=== PATIENT | female | born 1965 | race Caucasian/White ===

== ENCOUNTER 2022-10-31 08:37 | Outpatient (RCR) | payer OTHER, SELFPAY | END 2022-11-12 11:48 | disposition home or self-care (01) | LOC: PT 08:37 | PROVIDERS: Visit Provider Physician Assistant | DX: S33.5XXD Sprain of ligaments of lumbar spine, subsequent encounter (principal) | CPT/HCPCS: 20561; 97110 ==

== ENCOUNTER 2022-11-15 08:45 | Outpatient (OUT) | payer BC, OTHER, SELFPAY ==
--- NOTE | 2022-11-15 08:55 | MR_ITS ---
The [address] [address] Patient Name: JANA LANGSTON MRN: [id number] date: 1965 Sex: F Assigned Patient Location: MRI Current Patient Location: MRI Accession/Order Number: [id number] Exam Date: 11/15/2022 09:00 Report Date: 11/15/2022 10:13 At the request of: MUNA HONG Procedure: MR lumbar spine wo con EXAMINATION: MR lumbar spine wo con HISTORY: Lumbar Back Pain , chronic; bilateral hand and foot numbness COMPARISON: CT abdomen pelvis 11/03/2020 TECHNIQUE: A variety of imaging planes and parameters were utilized for visualization of suspected pathology. FINDINGS: For the purposes of numbering, sagittal T2 image # 8 extends from the T11 vertebral body superiorly to the S3-S4 level inferiorly. PARASPINAL AREA: Normal with no visible mass. BONES: No fracture, pars defect, or osseous lesion. CORD/CAUDA EQUINA: Normal caliber, contour, and signal intensity. DISC LEVELS: 12-L1: No significant disc/facet abnormality, spinal stenosis, or foraminal stenosis. L1-L2: No significant disc/facet abnormality, spinal stenosis, or foraminal stenosis. L2-L3: No significant disc/facet abnormality, spinal stenosis, or foraminal stenosis. L3-L4: No significant disc/facet abnormality, spinal stenosis, or foraminal stenosis. L4-L5: Early degenerative disc disease is present without focal protrusion or neural impingement. L5-S1: Early degenerative disc disease is present without focal protrusion or neural impingement. IMPRESSION: 1. Mild degenerative changes of the lower lumbar spine. 2. No significant central canal or foraminal stenosis. Electronically authenticated by: TRISTON PERRIN Date: 11/15/2022 10:13
== END 2022-11-15 08:46 ==
LOC: MRI 08:46
PROVIDERS: Visit Provider Nurse Practitioner Family
DX: S33.5XXA Sprain of ligaments of lumbar spine, initial encounter (principal); R20.0 Anesthesia of skin
CPT/HCPCS: 72148

== ENCOUNTER 2024-01-26 10:38 | Outpatient (OUT) | payer BC, SELFPAY ==
--- NOTE | 2024-01-26 10:46 | MM_ITS ---
Patient Name: JANA LANGSTON MR#: [id number] : 1965 Exam Date: 01/26/2024 Ordering Doctor: KAMRYN BECKHAM RADIOLOGY REPORT PROCEDURE: MM TOMOSYNTHESIS SCREENING BI COMPARISON: MG MAMM SCREEN 3D JER CAD, 10/26/2020. MG MAMM SCREEN 3D JER CAD, 05/09/2022. INDICATIONS: Screening Calculator Name NCI Breast Cancer Risk Assessment Tool 5 Year Breast Cancer Risk Not Reported. Lifetime Breast Cancer Risk Not Reported. Personal Breast Cancer No Personal Ovarian Cancer No Treatments None Family Cancers None LOCATION: [facility] BREAST COMPOSITION: The breasts are heterogeneously dense,which may obscure small masses. FINDINGS: DIAGNOSTIC CATEGORY 2--BENIGN FINDING. NO CHANGE FROM COMPARISON. Scattered benign-appearing calcifications are present. Scattered benign-appearing lymph nodes are present. RIGHT BREAST: No significant suspicious finding. LEFT BREAST: No significant suspicious finding. RECOMMENDATIONS: ROUTINE MAMMOGRAM AND CLINICAL EVALUATION IN 12 MONTHS. PLEASE NOTE: A NORMAL MAMMOGRAM DOES NOT EXCLUDE THE POSSIBILITY OF BREAST CANCER. A CLINICALLY SUSPICIOUS PALPABLE LUMP SHOULD BE BIOPSIED. Dictated by: Alexander Munguia MD on 01/26/2024 at 16:08 Approved by: Alexander Munguia MD on 01/26/2024 at 16:09
== END 2024-01-26 10:39 | disposition home or self-care (01) ==
LOC: MAMMO 10:40
PROVIDERS: Visit Provider Nurse Practitioner
DX: Z12.31 Encounter for screening mammogram for malignant neoplasm of breast (principal)
CPT/HCPCS: 77063; 77067

== ENCOUNTER 2024-01-28 09:55 | Outpatient (OUT) | payer BC, SELFPAY ==
--- OUTSIDE RECORDS SUMMARY | 2024-01-28 10:14 | XMS_ITS | CCD ---
Author Organization [facility] Care Team Providers Care Lead Machinist Name Role Phone Lee Lo Primary Care Provider Lee Lo Primary Care Provider Lee Lo Primary Care Provider Lee Lo DO Primary Care Provider [phone] MARYLU STUARTHLEEN E Referring Unavailable LEE LO Primary Care Unavailable IVETH, REYNA E Referring Unavailable LEE LO Primary Care Unavailable LEE LO Primary Care Unavailable IVETH, REYNA E Referring Unavailable DEMAR, DR RICHARDS Primary Care Unavailable DESMOND ROD Admitting Unavailable DESMOND ROD Consulting Unavailable DESMOND ROD Attending Unavailable Alexander Munguia Consulting Unavailable FRUTH, KAMRYN Admitting Unavailable FRUTH, KAMRYN Attending Unavailable FRUTH, KAMRYN Consulting Unavailable FRUTH, KAMRYN Attending Unavailable FRUTH, KAMRYN Admitting Unavailable FRUTH, KAMRYN Consulting Unavailable MISEric, DR RICHARDS Primary Care Unavailable LISHA ., JAVI Admitting Unavailable LISHA ., JAVI Attending Unavailable Lee Lo Primary Care Unavailable Rinkes, Reyna Attending Unavailable Rinkes, Reyna Admitting Unavailable MALCOLM MELTON Attending Unavailable RINKES, REYNA E Attending Unavailable MALCOLM MELTON Attending Unavailable RINE, SAUL L Attending Unavailable FRUTH, KAMRYN E Attending Unavailable RINKES, REYNA E Attending Unavailable RINE, SAUL L Attending Unavailable Allergies Allergy Classification Reported Allergen(s) Allergy Type Date of Onset Reaction(s) Facility (1 source) Penicillins Propensity to adverse reactions to drug 5 Other (See Comments) [facility] [place], [place] (2 sources) Penicillins Propensity to adverse reactions to drug 5 Other (See Comments) [facility] (1 source) Penicillin Drug Allergy 1 [facility] Repository Medications Current Medications Medication Drug Class(es) Dates Sig (Normalized) Sig (Original) acetaminophen 325 mg / HYDROcodone bitartrate 5 mg oral tablet (3 sources) Opioid Agonist Start: 01-26-2017 take 1 tablet by mouth every six hours as needed for pain HYDROcodone-aceta minophen (NORCO) 5-325 MG per tablet Take 1 tablet by mouth every 6 hours as needed for Pain . 10 tablet 0 01/26/2017 Active calcium carbonate 500 mg oral tablet (3 sources) calcium carbonat e (OSCAL) 500 MG TABS tablet Take 1,000 mg by mouth daily 0 Active take 2 tablets by [facility] once daily, then take 1 tablet by mouth calcium carbonate (OSCAL) 500 MG TABS tablet Take 1,000 mg by mouth daily 0 Active docosahexaenoic acid 120 mg / eicosapentaenoic acid 180 mg oral capsule (2 sources) take 1 capsule by mouth once daily [place]-3 Fatty Acids (FISH OIL) 1000 MG CAPS Take 3,000 mg by mouth daily 0 Active ibuprofen 800 mg oral tablet (3 sources) Nonsteroidal Anti-inflammatory Drug Start: 017 take 1 tablet by mouth every six hours as needed for pain ibuprofen (ADVIL;MOTRIN) 800 MG tablet Take 1 tablet by mouth every 6 hours as needed for Pain 30 tablet 0 01/26/2017 Active levonorgestrel 0.814074 mg/hr intrauterine system (3 sources) Progestin, Progestin-containin g Intrauterine Device levonorgestrel (MIRENA) 20 MCG/24HR IUD 1 each by Intrauterine route 0 Active Multiple Vitamins-Minerals (THERAPEUTIC MULTIVITAMIN-MINERALS) tablet (3 sources) take 1 tablet by mouth once daily Multiple Vitamins-Minerals (THERAPEUTIC MULTIVITAMIN-MINERALS ) tablet Take 1 tablet by mouth daily 0 Active omega-3 acid ethyl esters (alf) 1000 mg oral capsule (1 source) take 1 capsule by mouth once daily [place]-3 Fatty Acids (FISH OIL) 1000 MG CAPS Take 3,000 mg by mouth daily 0 Active vitamin e d-alpha 400 unt oral capsule (3 sources) take 1 capsule by mouth twice daily vitamin E 400 UNIT capsule Take 400 Units by mouth 2 times daily 0 Active Problems Active Problems Problem Classification Problem Date Documented Da te Episodic/Chronic Disorders of lipid metabolism (1 source) Hyperlipidemia, unspecified; Translations: [HYPERLIPIDEMIA UNSPECIFIED] Onset: 03-14-2022 Chronic E Codes: Cut/pierceb (1 source) Contact with knife, initial encounter; Translations: [CONTACT WITH KNIFE INITIAL ENC] Onset: 08-07-2022 Episodic External cause codes: Fall (2 sources) Fall; Translations: [Fall, initial encounter] Nutritional deficiencies (1 source) Vitamin D deficiency, unspecified; Translations: [VITAMIN D DEFICIENCY UNSPECIFIED] Onset: 03-14-2022 Chronic Open wounds of extremities (4 sources) Laceration without foreign body of right forearm, initial encounter; Translations: [LACERATION W/O FB RT FORARM INITIAL] Onset: 08-05-2022 Episodic Other connective tissue disease (1 source) Musculoskeletal pain; Translations: [Musculoskeletal pain] Episodic Other connective tissue disease (1 source) Other specified disorders of muscle; Translations: [Other specified disorders of muscle] Onset: 12-03-2023 Episodic Phlebitis; thrombophlebitis and thromboembolism (1 source) Deep venous thrombosis of left lower extremity; Translations: [Left leg DVT] Onset: 09-30-2014 11-30-2014 Prolapse of female genital organs (4 sources) Uterovaginal prolapse, unspecified; Translations: [Cystocele, unspecified] Onset: 06-17-2022 Chronic Sprains and strains (4 sources) Sprain of ligaments of lumbar spine, subsequent encounter; Translations: [SPRAIN LIGAMENTS LUMBAR SPN SUBSQT] Onset: 08-20-2022 Episodic Unclassified (1 source) Cancer cervix screening status; Translations: [Screening for cervical cancer] Past or Other Problems Problem Classification Problem Date Documented Da te Episodic/Chronic Diabetes mellitus without complication (1 source) Other abnormal glucose; Translations: [OTHER ABNORMAL GLUCOSE] Onset: 03-14-2022 Episodic Headache; including migraine (3 sources) Headache; Translations: [Headache] Onset: 02-15-2016 02-15-2016 Episodic Malaise and fatigue (1 source) Other fatigue; Translations: [OTHER FATIGUE] Onset: 03-14-2022 Episodic Other screening for suspected conditions (not mental disorders or infectious disease) (4 sources) Encounter for screening mammogram for malignant neoplasm of breast; Translations: [ENC SCR MAMMO MALIG NEOPLASM BREAST] Onset: 05-09-2022 Episodic Phlebitis; thrombophlebitis and thromboembolism (2 sources) Deep venous thrombosis of left lower extremity; Translations: [Acute embolism and thrombosis of unspecified deep veins of left lower extremity] Onset: 09-30-2014 11-30-2014 Episodic Residual codes; unclassified (1 source) Immunization not carried out because of patient refusal; Translations: [IMMU NOT CARRIED OUT PT REFUSAL] Onset: 03-14-2022 Episodic Urinary tract infections (3 sources) Acute pyelonephritis; Translations: [Acute pyelonephritis] Onset: 02-14-2016 02-14-2016 Episodic Results Test Name Value Interpretation Reference Range Facility MG MAMM SCREEN 3D JER CADon 05-09-2022 MG MAMM SCREEN 3D JER CAD Patient: FLOWER LANGSTON Exam Date: 05/09/2022 : 1965 Gender:F Ordering : KAMRYN EBCKHAM Admission #: [id number] Family : Order #: [id number] CLICK HERE TO VIEW EXAM RADIOLOGY REPORT PROCEDURE: MAMMOGRAM SCREENING 3D BILATERAL CAD COMPARISON: MG MAMM SCREEN 3D JER CAD, 10/26/2020. MG MAMM SCREEN JER W CAD, 06/13/2017. INDICATIONS: Screening mammography Calculator Name NCI Breast Cancer Risk Assessment Tool 5 Year Breast Cancer Risk Not Reported. Lifetime Breast Cancer Risk Not Reported. Personal Breast Cancer No Personal Ovarian Cancer No Treatments None Family Cancers None LOCATION: [facility] BREAST COMPOSITION: Heterogeneously dense,which may obscure small masses. FINDINGS: DIAGNOSTIC CATEGORY 2--BENIGN FINDING. NO CHANGE FROM COMPARISON. Scattered benign-appearing calcifications are present. Scattered benign-appearing lymph nodes are present. RIGHT BREAST: No significant suspicious finding. LEFT BREAST: No significant suspicious finding. RECOMMENDATIONS: ROUTINE MAMMOGRAM AND CLINICAL EVALUATION IN 12 MONTHS. PLEASE NOTE: A NORMAL MAMMOGRAM DOES NOT EXCLUDE THE POSSIBILITY OF BREAST CANCER. A CLINICALLY SUSPICIOUS PALPABLE LUMP SHOULD BE BIOPSIED. Dictated by: Alexander Munguia MD on 05/10/2022 at 07:39 Approved by: Alexander Munguia MD on 05/10/2022 at 07:43 Normal [facility] CBC AUTO DIFFon 10-11-2022 BASO # 0.1 103/ul Normal 0.0-0.1 [facility] Comment on above: Performed By: #### C BC #### [facility] [address] [place] [address] Dr. Tara Zapata Basophils/100 WBC (Bld) 0.9 % Normal 0.2-2.0 [facility] Comment on above: Performed By: #### C BC #### [facility] [address] [place] [address] Dr. Tara Zapata EO # 0.4 103/ul Normal 0.0-0.7 [facility] Comment on above: Performed By: #### C BC #### [facility] [address] [place] [address] Dr. Tara Zapata Eosinophils/100 WBC (Bld) 5.5 % Normal 0.9-7.0 [facility] Comment on above: Performed By: #### C BC #### [facility] [address] [place] [address] Dr. Tara Zapata Erythrocyte distribution width (RBC) [Ratio] 13.8 % Normal 11.0-15.0 [facility] Comment on above: Performed By: #### C BC #### [facility] [address] [place] [address] Dr. Tara Zapata Hematocrit (Bld) [Volume fraction] 40.3 % Normal 36.0-48.0 [facility] Comment on above: Performed By: #### C BC #### [facility] [address] [place] [address] Dr. Tara Zapata Hemoglobin (Bld) [Mass/Vol] 13.2 g/dL Normal 12.0-16.0 [facility] Comment on above: Performed By: #### C BC #### [facility] [address] [place] [address] Dr. Tara Zapata IG # 0.18 10e3/ul Critically high 0.00-0.03 [facility] Comment on above: Performed By: #### C BC #### [facility] [address] [place] [address] Dr. Tara Zapata IG % 2.7 % Critically high 0.0-0.5 [facility] Comment on above: Performed By: #### C BC #### [facility] [address] [place] [address] Dr. Tara Zapata LYMPH # 2.4 103/ul Normal 1.2-3.8 [facility] Comment on above: Performed By: #### C BC #### [facility] [address] [place] [address] Dr. Tara Zapata Lymphocytes/100 WBC (Bld) 37.1 % Normal 20.5-60.0 [facility] Comment on above: Performed By: #### C BC #### [facility] [address] [place] [address] Dr. Tara Zapata MANUAL DIFF REQ NO Normal [facility] Comment on above: Performed By: #### C BC #### [facility] [address] [place] [address] Dr. Tara Zapata MCH (RBC) [Entitic mass] 29.7 pg Normal 26.7-34.0 [facility] Comment on above: Performed By: #### C BC #### [facility] [address] [place] [address] Dr. Tara Zapata MCHC (RBC) [Mass/Vol] 32.8 g/dL Normal 29.9-35.2 [facility] Comment on above: Performed By: #### C BC #### [facility] [address] [place] [address] Dr. Tara Zapata MCV (RBC) [Entitic vol] 90.8 fL Normal 81.0-99.0 [facility] Comment on above: Performed By: #### C BC #### [facility] [address] [place] [address] Dr. Tara Zapata MONO # 0.6 103/ul Normal 0.3-0.8 [facility] Comment on above: Performed By: #### C BC #### [facility] [address] [place] [address] Dr. Tara Zapata Monocytes/100 WBC (Bld) 9.1 % Normal 1.7-12.0 [facility] Comment on above: Performed By: #### C BC #### [facility] [address] [address] [address] Tara Zapata NEUT # 2.9 103/ul Normal 1.4-6.5 [facility] Comment on above: Performed By: #### C BC #### [facility] [address] [address] [address] Tara Zapata Neutrophils/100 WBC (Bld) 44.7 % Normal 43.0-75.0 [facility] Comment on above: Performed By: #### C BC #### [facility] [address] [address] [address] Tara Zapata Platelet mean volume (Bld) [Entitic vol] 10.0 fL Normal 9.5-13.5 [facility] Comment on above: Performed By: #### C BC #### [facility] [address] [place] [address] Dr. Tara Zapata PLT 351 103/ul Normal 150-450 [facility] Comment on above: Performed By: #### C BC #### [facility] [address] [place] [address] Dr. Tara Zapata RBC 4.44 106/ul Normal 4.20-5.40 [facility] Comment on above: Performed By: #### C BC #### [facility] [address] [place] [address] Dr. Tara Zapata WBC 6.6 103/ul Normal 4.0-11.0 [facility] Comment on above: Performed By: #### C BC #### [facility] [address] [place] [address] Dr. Tara Zapata GLYCOHEMOGLOBIN A1Con 2021 ADA RECOMMENDATION SEE BELOW Normal [facility] [place] Comment on above: Result Comment: ADA RECOMMENDED LIMIT 4.0 - 6.0 ADA THERAPEUTIC TARGET < 7.0 ACTION SUGGESTED > 7.0 Performed By: #### A 1C #### [facility] [address] [place] [address] Dr. Tara Zapata Glucose [Mass/Vol] 120 mg/dL Normal [facility] Comment on above: Performed By: #### A 1C #### [facility] [address] [address] [address] Tara Zapata HbA1c (Bld) [Mass fraction] 5.8 % Normal 4.5-6.2 [facility] Comment on above: Performed By: #### A 1C #### [facility] [address] [address] [address] Tara Zapata LIPID PROFILEon 03-12-2022 CHOL-HDL RATIO NORM SEE BELOW Normal [facility] Comment on above: Result Comment: 3.3 - 4.4 LOW RISK 4.4 - 7.1 AVERAGE RISK 7.1 - 11.0 MODERATE RISK >11.0 HIGH RISK Performed By: #### L IPID, CMP, TSH #### [facility] [address] [address] [address] Tara Zapata Cholesterol [Mass/Vol] 243 mg/dL Critically high <=200 [facility] Comment on above: Performed By: #### L IPID, CMP, TSH #### [facility] [address] [address] [address] Tara Zapata Cholesterol in HDL [Mass/Vol] 56 mg/dL Normal 40-60 [facility] Comment on above: Performed By: #### L IPID, CMP, TSH #### [facility] [address] [address] [address] Tara Zapata Cholesterol in LDL [Mass/Vol] 173.2 mg/dL Normal [facility] Comment on above: Performed By: #### L IPID, CMP, TSH #### [facility] [address] [address] [address] Tara Zapata Cholesterol.total/Ch olesterol in HDL [Mass ratio] 4.3 {ratio} Normal [facility] Comment on above: Performed By: #### L IPID, CMP, TSH #### [facility] [address] [address] [address] Tara Zapata HDL NORMAL > or = 60 mg/dl - LO W CARDIOVASCULAR RISK <40 mg/dl - HIGH CARDIOVASCULAR RISK Normal [facility] Comment on above: Performed By: #### L IPID, CMP, TSH #### [facility] [address] [address] [address] Tara Zapata LDL CALC NORMAL SEE BELOW Normal [facility] Comment on above: Result Comment: <100 mg/dl OPTIMAL 100 - 129 mg/dl NEAR OR ABOVE OPTIMAL 130 - 159 mg/dl BORDERLINE HIGH 160 - 189 mg/dl HIGH >190 mg/dl VERY HIGH Performed By: #### L IPID, CMP, TSH #### [facility] [address] [address] [address] Tara Zapata Triglyceride [Mass/Vol] 69 mg/dL Normal <=150 [facility] Comment on above: Performed By: #### L IPID, CMP, TSH #### [facility] [address] [address] [address] Tara Zapata VLDL CALC 13.8 mg/dL Normal [facility] Comment on above: Performed By: #### L IPID, CMP, TSH #### [facility] [address] [address] [address] Tara Zapata PROF 14(COMP METB)on 022 Albumin [Mass/Vol] 3.7 g/dL Normal 3.4-5.0 [facility] Comment on above: Performed By: #### L IPID, CMP, TSH #### [facility] [address] [address] [address] Tara Zapata Albumin/Globulin [Mass ratio] 1.1 {ratio} Normal [facility] Comment on above: Performed By: #### L IPID, CMP, TSH #### [facility] [address] [address] [address] Tara Zapata ALP [Catalytic activity/Vol] 72 U/L Normal 46-116 [facility] Comment on above: Performed By: #### L IPID, CMP, TSH #### [facility] [address] [address] [address] Tara Zapata ALT [Catalytic activity/Vol] 96 U/L Critically high 14-59 [facility] Comment on above: Performed By: #### L IPID, CMP, TSH #### [facility] [address] [address] [address] Tara Zapata Anion gap [Moles/Vol] 11.1 mmol/L Normal [facility] Comment on above: Performed By: #### L IPID, CMP, TSH #### [facility] [address] [address] [address] Tara Zapata AST [Catalytic activity/Vol] 23 U/L Normal 15-37 [facility] Comment on above: Performed By: #### L IPID, CMP, TSH #### [facility] [address] [address] [address] Tara Zapata Bilirubin [Mass/Vol] 0.4 mg/dL Normal 0.2-1.0 [facility] Comment on above: Performed By: #### L IPID, CMP, TSH #### [facility] [address] [address] [address] Tara Zapata Calcium [Mass/Vol] 9.0 mg/dL Normal 8.5-10.1 [facility] Comment on above: Performed By: #### L IPID, CMP, TSH #### [facility] [address] [address] [address] Tara Zapata Chloride [Moles/Vol] 105 mmol/L Normal 98-107 [facility] Comment on above: Performed By: #### L IPID, CMP, TSH #### [facility] [address] [address] [address] Tara Zapata CO2 [Moles/Vol] 30.8 mmol/L Normal 21.0-32.0 [facility] Comment on above: Performed By: #### L IPID, CMP, TSH #### [facility] [address] [address] [address] Tara Zapata Creatinine [Mass/Vol] 0.70 mg/dL Normal 0.55-1.02 [facility] Comment on above: Performed By: #### L IPID, CMP, TSH #### [facility] [address] [address] [address] Tara Zapata EGFR-AF ENGLISH >60 Normal >=60 [facility] Comment on above: Performed By: #### L IPID, CMP, TSH #### [facility] [address] [address] [address] Tara Zapata EGFR-NON AF ENGLISH >60 Normal >=60 [facility] Comment on above: Performed By: #### L IPID, CMP, TSH #### [facility] [address] [address] [address] Tara Zapata Globulin (S) [Mass/Vol] 3.5 g/dL Normal [facility] Comment on above: Performed By: #### L IPID, CMP, TSH #### [facility] [address] [address] [address] Tara Zapata Glucose [Mass/Vol] 103 mg/dL Normal 74-106 [facility] [place] Comment on above: Performed By: #### L IPID, CMP, TSH #### [facility] [address] [place] [address] Dr. Tara Zapata Potassium [Moles/Vol] 3.9 mmol/L Normal 3.5-5.1 [facility] Comment on above: Performed By: #### L IPID, CMP, TSH #### [facility] [address] [place] [address] Dr. Tara Zapata Protein [Mass/Vol] 7.2 g/dL Normal 6.4-8.2 [facility] [place] Comment on above: Performed By: #### L IPID, CMP, TSH #### [facility] [address] [address] [address] Tara Zapata Sodium [Moles/Vol] 143 mmol/L Normal 136-145 [facility] [place] Comment on above: Performed By: #### L IPID, CMP, TSH #### [facility] [address] [place] [address] Dr. Tara Zapata Urea nitrogen [Mass/Vol] 19.0 mg/dL Critically high 7.0-18.0 [facility] Comment on above: Performed By: #### L IPID, CMP, TSH #### [facility] [address] [place] [address] Dr. Tara Zapata Urea nitrogen/Creatinine [Mass ratio] 27.1 mg/mg Normal [facility] Comment on above: Performed By: #### L IPIDTAMIKO, TSH #### [facility] [address] [place] [address] Dr. Tara Zapata TSHon 03-12-2022 TSH 1.792 uIU/mL Normal 0.358-3.[address] [facility] Comment on above: Performed By: #### L IPID CMP, TSH #### [facility] [address] [place] [address] Dr. Tara Zapata UA (CLEAN/CATCH) INSPECTOR SHELLS/MICRO I F IND.on 03-12-2022 Bilirubin Ql (U) Negative Normal NEGATIVE [facility] Comment on above: Performed By: #### U ACSIND, UMICRO #### [facility] [address] [place] [address] Dr. Tara Zapata Clarity (U) CLEAR Normal CLEAR [facility] Comment on above: Performed By: #### U ACSIND, ICRO #### [facility] [address] [place] [address] Dr. Tara Zapata Color (U) LT. YELLOW Normal YELLOW [facility] Comment on above: Performed By: #### U ACSIND, UMICRO #### [facility] [address] [place] [address] Dr. Tara Zapata Glucose Ql (U) Negative Normal NEGATIVE [facility] Comment on above: Performed By: #### U ACSIND, UMICRO #### [facility] [address] [place] [address] Dr. Tara Zapata Hemoglobin Ql (U) Negative Normal NEGATIVE [facility] Comment on above: Performed By: #### U ACSIND, UMICRO #### [facility] [address] [place] [address] Dr. Tara Zapata Ketones Ql (U) Negative Normal NEGATIVE [facility] Comment on above: Performed By: #### U ACSIND, UMICRO #### [facility] [address] [place] [address] Dr. Tara Zapata LEUKOCYTES SMALL Abnormal NEGATIVE [facility] Comment on above: Performed By: #### U ACSIND, UMICRO #### [facility] [address] [address] [address] Tara Zapata Nitrite Ql (U) Negative Normal NEGATIVE [facility] Comment on above: Performed By: #### U ACSIND, UMICRO #### [facility] [address] [address] [address] Tara Zapata pH (U) 6.0 [pH] Normal 5-9 [facility] Comment on above: Performed By: #### U ACSIND, UMICRO #### [facility] [address] [address] [address] Tara Zapata SPEC GRAVITY 1.025 Normal 1.005-<=1.025 [facility] Comment on above: Performed By: #### U ACSIND, UMICRO #### [facility] [address] [place] [address] Dr. Tara Zapata UA PROTEIN Negative Normal NEGATIVE/ TRACE The [facility] Comment on above: Performed By: #### U ACSIND, UMICRO #### [facility] [address] [address] [address] Tara Zapata UR MICRO IND INDICATED Normal [facility] Comment on above: Performed By: #### U ACSIND, UMICRO #### [facility] [address] [place] [address] Dr. Tara Zapata Urobilinogen Qn (U) 0.2 {Ritika'U}/dL Normal 0.2 - 1. 0 [facility] Comment on above: Performed By: #### U ACSIND, UMICRO #### [facility] [address] [address] [address] Tara Zapata URINE MICROSCOPIC ONLYon BACTERIA NONE SEEN Normal NONE SEEN The [facility] Comment on above: Performed By: #### U ACSIND, UMICRO #### [facility] [address] [address] [address] Tara Zapata Bacteria identified Cx Nom (U) NOT INDICATED Normal [facility] Comment on above: Performed By: #### U ACSIND, UMICRO #### [facility] [address] [address] [address] Tara Zapata CAST NONE SEEN Normal NONE SEEN The [facility] Comment on above: Performed By: #### U ACSIND, UMICRO #### [facility] [address] [address] [address] Tara Zapata Crystals LM Nom (Urine sed) NONE SEEN Normal NONE SEEN The [facility] Comment on above: Performed By: #### U ACSIND, UMICRO #### [facility] [address] [address] [address] Tara Zapata Epithelial cells LM Ql (Urine sed) RARE Normal NONE SEEN /RARE The [facility] Comment on above: Performed By: #### U ACSIND, UMICRO #### [facility] [address] [place] [address] Dr. Tara Zapata MUCOUS NONE SEEN Normal NONE SEEN The [facility] Comment on above: Performed By: #### U ACSIND, UMICRO #### [facility] [address] [place] [address] Dr. Tara Zapata RBC 0-2 Normal 0-2 [facility] Comment on above: Performed By: #### U ACSKYRA, UMICRO #### [facility] [address] [place] [address] Dr. Tara Zapata WBC 0-2 Abnormal NONE SEEN The [facility] Comment on above: Performed By: #### U ACSKYRA, UMICRO #### [facility] [address] [place] [address] Dr. Tara Zapata VITAMIN D 25 OHon 03-12-2022 VIT D 25-OH 88.0 ng/mL Normal [facility] Comment on above: Performed By: #### V ITAD #### [facility] [address] [place] [address] Dr. Tara Zapata VIT D RANGES SEE BELOW Normal [facility] Comment on above: Result Comment: <20 ng/mL Vit D deficient 20 - <30 ng/mL Vit D insufficient 30 - 100 ng/mL Vit D sufficient >100 ng/mL Potential Toxicity Performed By: #### V ITAD #### [facility] [address] [place], [place] [address] Dr. Tara Zapata [employer] Cytology Reporton 2020 [employer] Cytology Report Clinical Information Specimen Collection Date: 05/21/2021 LMP: NA Type of specimen: Cervical/endocervical MENSES: Post-menopausal. HPV testing is being performed at [facility] and will be reported out in the laboratory [facility] result section. Purpose of smear: Regular periodic exam/screening Pap GY Specimen A Liquid Prep Pap Smear, with HPV Adequacy Alpha Response SAT ANATOMICPATHOLOGY Endocervical Alpha Response EC/TZONE + ANATOMICPATHOLOGY Statement of Adequacy Satisfactory for Evaluation. Transformation Zone Present. Diagnosis Alpha Response GY NILM ANATOMICPATHOLOGY Diagnosis NEGATIVE FOR INTRAEPITHELIAL LESION OR MALIGNANCY. Completed by: JULIANNE Mccormick (ASCP) (Electronically signed by) 05/28/21 11:49 EST GY Disclaimer Interp The PAP smear is a screening test with an inherent, but low, probability of error. A negative report indicates a low probability of significant cervical pathology. Your patient should be reminded to consult you immediately if she experiences new symptoms and to continue having regular PAP smears in the future. GY Disclaimer Alpha [employer] Disclaimer ANATOMICPATHOLOGY Normal [facility] Comment on above: Performed By: #### G YNCYTREP #### [facility] (DEFAULT) [address] [place] [address] HPV DNAon 05-23-2021 HPV DNA Scrn Negative Normal Negative [facility] Comment on above: Result Comment: The APTIMA HPV Assay is an in-vitro nucleic acid amplification test for the qualitative detection of HPV in cervical specimens. The APTIMA HPV Assay should be interpreted in conjunction with other laboratory and clinical data available to the clinician. The APTIMA HPV Assay detects E6/E7 viral messenger RNA (mRNA) of the high-risk HPV types 16, 18, 31, 33, 35, 39, 45, 51, 52, 56, 58, 59, 66, and 68. Detection of high-risk HPV mRNA is dependent on the number of copies present in the specimen and may be affected by specimen collection methods, patient factors, stage of infection, and the presence of interfering substances. Performed By: #### C [id number] #### [facility] [address] [place] [address] Obstetrics Office/Clinic Not horacio 05-21-2021 Obstetrics Office/Clinic Note Chief Complaint New pt. Establishing care, Annual Exam, Previous [facility] [place] pt. History of Present Illness Pelvic Pain: No Painful Sex: No Abnormal Vaginal Discharge: No Abnormal Vaginal Bleeding: No Vaginal Dryness: No Vaginal Itch: No Vaginal Burning: No Vaginal Odor: No Hot Flashes: Yes Night Sweats: No Breast Lump: No Breast Pain: No Contraception Type: Abstinence Age Menses Started: 12 Menstrual Periods: No Reason for No Menstrual Periods: Menopausal 05/21/21 07:56:00 Pt presents for annual exam. States has not had period since Mirena was taken out two years ago. No current partner, he . Believes uterus or bladder has dropped, feels a bulge. Last pap: Has every year. Unsure of date. Denies abnormal since her LEEP. Last mammogram: Done at [place] [facility] [place]. unsure of dates. LEEP: done in [address] 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 Mild HF since. Pt denies urinary incontinence. She feels a vaginal bulge. She denies urinary hesitancy or frequency. Pt's symptoms are worse at end of day. Pt has hx of 3 vaginal deliveries and had an 8 # baby. Pt. exercises 5 x per week. Review of Systems Head Migraines: No Headaches: No Eyes Corrective Lenses: Glasses Ears, Nose, Throat Congestion: No Vertigo: No Sore throat: No Nasal drainage: No Cardio Respiratory Peripheral edema: No Heart Irregularity: No Chest Pain: No Shortness of Breath: No Gastrointestinal Bloating: No Reflux/heartburn: No Abdominal Pain: No Change in bowel habits: Yes Urinary Urinary Incontinence: No Urinary frequency: No Nocturia: No Urgency: No Painful urination: No Musculoskeletal Backpain: No Muscle aches: No Joint pain: No Integumentary Lesions: No Moles: No Acne: No Hair changes: No PsychoSocial Sleep Problems: No Anxiety: No Suicidal Ideation: No Homicidal Ideation: No Depression: No Hematologic/Lymphatic Bruising: No Bleeding tendencies: No Endocrine Abnormal weight gain: No Abnormal weight loss: No Fatigue: No Additional Details Pain Present Physical Exam Vitals & Measurements T: 36.4 ?C (Temporal Artery) BP: 120/64 HT: 153.6 cm WT: 65 kg WT: 65 kg (Dosing) BMI: 27.55 General: Alert and oriented x 3. Well nourished. No acute distress. HEENT: Normocephalic. Normal hearing. Moist oral mucosa. No scleral icterus. No sinus tenderness. Neck: Supple, non-tender. Normal thyroid. No lymphadenopathy. Lungs: Clear to auscultation and percussion. Non-labored respiration. Heart: Normal rate with regular rhythm. No murmur, gallop or edema. Abdomen: Soft, non-tender, non-distended. Normal bowel sounds and no masses appreciated. Musculoskeletal: Normal range of motion and strength. No tenderness or swelling noted. Skin: Skin is warm, dry and pink. No rashes or lesions. Neurologic: CN II-XII grossly intact. Psychiatric: Cooperative. Appropriate mood and affect. Breast exam: No masses, tenderness, or skin changes. No nipple discharge. External Genitalia: Normal urethral meatus. No lesions. Vulvar skin intact. Genitourinary: Normal vaginal mucosa. No lesions or abnormal discharge. Cervix intact without lesion. Grade 2 cystocele, grade 2 uterine prolapse. Bimanual exam: Normal sized, non-tender, mobile uterus. No adnexal tenderness or masses. Additional Vitals BP Position/Location: Sitting, Right arm Assessment/Plan 1. Encounter for gynecological examination (general) (routine) without abnormal findings Physician Comments 1. Recommend monthly self breast exam and call with any changes. 2. Recommend yearly mammogram starting at age 40 (sooner if family history). 3. Recommend colonoscopy to screen for colon cancer beginning at age 45. Gave option of Cologuard if unwilling to do colonoscopy. 4. Recommend vitamin D 1000-2000IU daily. 5. Recommend calcium either through diet (3 servings of dairy daily) or if not able to get through diet then recommend supplement 1200mg daily in divided doses. 6. Recommend healthy diet. 7. Recommend exercise 30 min 5 days weekly. Release of records is signed to obtain past [employer] records. Ordered: [id number] AMB New Preventative Visit 40-64 years Pathology Pap Smear Request 2. Cystocele with prolapse Sent to Vickie Patel PT Ordered: Referral to Physical Therapy Orders: External Referral Medical Decision Making Chronic conditions NOT treated during this visit that affected my overall medical decision making: [] Treatment plans discussed but not opted for at this time: [] Prescribed medication that requires intensive monitoring for toxicity: [] I have reviewed the patient?s medication list for medication interactions/contrain dications and/or for upcoming procedures: [yes or no] Time Spent with the Patient I have personally spent [] minutes on this date, directly related to today's patient visit, including pre and post visit work, for th (more content not included)... Normal [facility] XR HIPS WITH PELVIS BILATERA [facility] 05-17-2020 XR HIPS WITH PELVIS BILATERAL EXAM: XR HIPS WITH PELVIS BILATERAL HISTORY: The patient is a 54-year-old female with bilateral hip pain since fall one week ago. COMPARISON: None. FINDINGS: I do not identify any displaced fractures of either proximal femur or elsewhere throughout the bony pelvis. The widths and alignment of both hip joints are maintained. Both sacroiliac joints are maintained. The pubic symphysis is maintained. IMPRESSION: Radiographically negative hips and bony pelvis. Normal [facility] IMPRESSION: Radiographically negative hips and bony pelvis. [facility] EXAM: XR HIPS WITH PELVIS BILATERAL HISTORY: The patient is a 54-year-old female with bilateral hip pain since fall one week ago. COMPARISON: None. FINDINGS: I do not identify any displaced fractures of either proximal femur or elsewhere throughout the bony pelvis. The widths and alignment of both hip joints are maintained. Both sacroiliac joints are maintained. The pubic symphysis is maintained. [facility] [employer] [facility] User, Interfaces - 05/17/2020 9:21 PM EST EXAM: XR HIPS WITH PELVIS BILATERAL HISTORY: The patient is a 54-year-old female with bilateral hip pain since fall one week ago. COMPARISON: None. FINDINGS: I do not identify any displaced fractures of either proximal femur or elsewhere throughout the bony pelvis. The widths and alignment of both hip joints are maintained. Both sacroiliac joints are maintained. The pubic symphysis is maintained. IMPRESSION IMPRESSION: Radiographically negative hips and bony pelvis. [facility] XR SPINE LUMBOSACRAL AP AND LATERALon 05-15-2020 XR SPINE LUMBOSACRAL AP AND LATERAL LUMBAR SPINE, 3 VIEWS, Date: 05/15/2020. EXAM: XR SPINE LUMBOSACRAL AP AND LATERAL HISTORY: Fall, initial encounter COMPARISON: None. TECHNIQUE: AP and lateral radiographs of the lumbar spine, with a coned-down projection at the lumbosacral junction, were obtained. FINDINGS: There is mild left convex curvature. The lumbar vertebral bodies are anatomically aligned. Vertebral body heights are maintained. There is no evidence for an acute fracture, subluxation, or dislocation. IMPRESSION: 1. No evidence for acute fracture or dislocation. 2. Mild levoscoliosis of the lumbar spine. Normal [facility] IMPRESSION: 1. No evidence for acute fracture or dislocation. 2. Mild levoscoliosis of the lumbar spine. [facility] LUMBAR SPINE, 3 VIEWS, Date: 05/15/2020. EXAM: XR SPINE LUMBOSACRAL AP AND LATERAL HISTORY: Fall, initial encounter COMPARISON: None. TECHNIQUE: AP and lateral radiographs of the lumbar spine, with a coned-down projection at the lumbosacral junction, were obtained. FINDINGS: There is mild left convex curvature. The lumbar vertebral bodies are anatomically aligned. Vertebral body heights are maintained. There is no evidence for an acute fracture, subluxation, or dislocation. [facility] User, Interfaces - 05/15/2020 9:43 PM EST LUMBAR SPINE, 3 VIEWS, Date: 05/15/2020. EXAM: XR SPINE LUMBOSACRAL AP AND LATERAL HISTORY: Fall, initial encounter COMPARISON: None. TECHNIQUE: AP and lateral radiographs of the lumbar spine, with a coned-down projection at the lumbosacral junction, were obtained. FINDINGS: There is mild left convex curvature. The lumbar vertebral bodies are anatomically aligned. Vertebral body heights are maintained. There is no evidence for an acute fracture, subluxation, or dislocation. IMPRESSION IMPRESSION: 1. No evidence for acute fracture or dislocation. 2. Mild levoscoliosis of the lumbar spine. [employer] [facility] XR SPINE THORACIC 2 VIEWSon 05-15-2020 XR SPINE THORACIC 2 VIEWS Date: 05/15/2020. EXAM: XR SPINE THORACIC 2 VIEWS HISTORY: Fall, initial encounter COMPARISON: None. TECHNIQUE: AP and lateral radiographs of the thoracic spine were obtained. FINDINGS: There is a mild right convex curvature of the midthoracic spine. There is mild disc space narrowing within the mid thoracic spine as well with small osteophytes present. The thoracic vertebral bodies are anatomically aligned. Vertebral body heights are maintained. There is no evidence for an acute fracture, subluxation, or dislocation. IMPRESSION: 1. No evidence for acute fracture or dislocation. 2. Mild dextroscoliosis of the thoracic spine. 3. Mild multilevel degenerative disc. 4. Mild thoracic spondylosis. Normal [facility] IMPRESSION: 1. No evidence for acute fracture or dislocation. 2. Mild dextroscoliosis of the thoracic spine. 3. Mild multilevel degenerative disc. 4. Mild thoracic spondylosis. [facility] Date: 05/15/2020. EXAM: XR SPINE THORACIC 2 VIEWS HISTORY: Fall, initial encounter COMPARISON: None. TECHNIQUE: AP and lateral radiographs of the thoracic spine were obtained. FINDINGS: There is a mild right convex curvature of the midthoracic spine. There is mild disc space narrowing within the mid thoracic spine as well with small osteophytes present. The thoracic vertebral bodies are anatomically aligned. Vertebral body heights are maintained. There is no evidence for an acute fracture, subluxation, or dislocation. [facility] User, Interfaces - 05/15/2020 9:56 PM EST Date: 05/15/2020. EXAM: XR SPINE THORACIC 2 VIEWS HISTORY: Fall, initial encounter COMPARISON: None. TECHNIQUE: AP and lateral radiographs of the thoracic spine were obtained. FINDINGS: There is a mild right convex curvature of the midthoracic spine. There is mild disc space narrowing within the mid thoracic spine as well with small osteophytes present. The thoracic vertebral bodies are anatomically aligned. Vertebral body heights are maintained. There is no evidence for an acute fracture, subluxation, or dislocation. IMPRESSION IMPRESSION: 1. No evidence for acute fracture or dislocation. 2. Mild dextroscoliosis of the thoracic spine. 3. Mild multilevel degenerative disc. 4. Mild thoracic spondylosis. [facility] NOVEL CORONAVIRUSon 04-07-20 20 NARRATIVE E Normal [facility] SARS-COV-2 DETECTED Abnormal NOT DETECTED [facility] Comment on above: Result Comment: ENHA NCED CONTACT, AND DROPLET ISOLATION IS REQUIRED FOR INPATIENTS WITH SARS-CoV-2. CALLED TO AND READ BACK BY NICHOL RAZO ON 04.07.2020 AT 1503 BY JEANETTE IRWIN Encounters Encounter Date Encounter Type Care Provider Facility Start: 01-01-2024 End: 01-01-2024 ambulatory REYNA STUART Not Available Start: 12-03-2023 ambulatory Lee Lo Facil ity:[facility] Start: 11-12-2023 End: 11-12-2023 ambulatory SAUL SMITH Not Available Start: 10-08-2023 End: 10-08-2023 ambulatory MALCOLM MELTON Not Available Start: 08-27-2023 End: 08-27-2023 ambulatory REYNA STUART Not Available Start: 06-18-2023 End: 06-18-2023 ambulatory MALCOLM MELTON Not Available Start: 05-08-2023 End: 05-08-2023 ambulatory KAMRYN E FRUANTONY Not Available Start: 04-15-2023 End: 04-15-2023 ambulatory SAUL ALCANTARE Not Available Start: 08-20-[address] DOCTOR BENZ Facility :[facility] Start: 08-05-2022 End: 08-05-2022 ambulatory LEE LO [facility] Start: 06-17-2022 End: 06-18-2022 ambulatory REYNA Peterson [facility]ANCISCA [facility] Start: 06-17-2022 End: 06-17-2022 Subsequent hospital visit by physician Neeru Sherman PT [facility] Comment on above: Arrived Start: 05-20-2022 End: 05-21-2022 ambulatory REYNA STUART [facility] Start: 05-20-2022 End: 05-20-2022 Subsequent hospital visit by physician Neeru Sherman PT [facility] Comment on above: Arrived Start: 05-09-2022 End: 05-10-2022 ambulatory Alexander Munguia Facility:[facility] Start: 03-14-2022 Encounter for genera l adult medical examination without abnormal findings KAMRYN FRUTH [facility] Start: 03-12-2022 End: 03-13-2022 ambulatory KAMRYN FRUTH Facility:[facility] Start: 03-12-2022 End: 03-13-2022 Encounter for general adult medical examination without abnormal findings KAMRYN FRUTH Facility:[facility] Start: 05-17-2020 End: 05-17-2020 Subsequent hospital visit by physician Lee Lo Work Phone: [facility] Comment on above: Arrived Start: 05-15-2020 End: 05-15-2020 Subsequent hospital visit by physician Lee Lo Work Phone: [facility] Comment on above: Arrived Start: 11-23-2019 End: 11-23-2019 Subsequent hospital visit by physician Lee Lo [facility] Laboratory Comment on above: Screening for cervic al cancer Start: 09-17-2018 End: 09-17-2018 Patient encounter procedure Historical Provider [employer] Registration Procedures Date Procedure Procedure Detail Performing Clinician Start: 05-17-2020 Radiography of hip Freeman aeclark Michelle Lo Work Phone: Start: 05-15-2020 X-ray of lumbosacral spine Lee Lo Work Phone: Start: 05-15-2020 Radiography of thora cic spine Lee Lo Work Phone: Start: 11-23-2019 Microscopic observat ion [Identifier] in Cervix by Cyto stain Neeru Sherman PT Start: 09-17-2018 LABS (OUTSIDE) Historic al Provider Start: 09-17-2018 Lipid 1996 panel - S ana maría or Plasma Historical Provider Start: 11-02-2015 Colonoscopy Neeru zhu PT Plan of Treatment Date Care Activity Detail Author Start: 11-01-2025 Screening for malign ant neoplasm of colon [employer] Start: 11-22-2024 Screening for malign ant neoplasm of cervix [employer] Start: 09-18-2023 Fasting lipid profile LIPID SCREENIN [employer] Start: 12-24-2022 DTaP/Tdap/Td vaccine (2 - Td or Tdap) DTaP/Tdap/Td vaccine (2 - Td or Tdap) [employer] Start: 11-22-2022 Screening for malign ant neoplasm of cervix Pap smear [employer] Start: 08-05-2022 End: 08-05-2022 Patient encounter procedure 08/05/2022 Appointment Physical Therapy Neeru Sherman, PT [facility] Start: 06-17-2022 End: 06-17-2022 Patient encounter procedure 06/17/2022 Appointment Physical Therapy Neeru Sherman, YVONNE DÍAZ [facility] Start: 12-31-2021 Influenza vaccination Flu vaccine (# 1) [employer] Start: 11-27-2020 End: 11-27-2020 Office Visit 11/27/2020 Office Visit Obstetrics and Gynecology Wendy Moser, REAL ESTATE PROFESSIONAL - CNM [address] [facility] [place] [address] [phone] [facility] Start: 11-22-2020 Shingles Vaccine (1 of 2) Shingles Vaccine (1 of 2) [place], [place] Comment on above: Postponed from 09/06 (Unavailable) Start: 11-08-2020 COVID-19 Vaccine (3 - Booster for Moderna series) COVID-19 Vaccine (3 - Booster for Moderna series) [facility] Start: 09-18-2020 Lipid panel [facility] Start: 02-01-2020 Influenza vaccination Flu vacc ine (Season Ended) [place], [place] Start: 12-14-2019 DTaP/Tdap/Td vaccine (1 - Tdap) DTaP/Tdap/Td vaccine (1 - Tdap) [place], [place] Comment on above: Postponed from 09/06 (Not Indicated) Start: 10-01-2017 Screening for malign ant neoplasm of colon Colon cancer screen colonoscopy [place], [place] Start: 03-03-2017 Screening for malign ant neoplasm of cervix Cervical cancer screen [place], [place] Start: 03-03-2016 Screening for malign ant neoplasm of breast Breast cancer screen [facility] Start: 2014 Colonoscopy COLORECTAL CAN CER SCREENING DISCUSSION [facility] Start: 2014 Protein mass conc COLON CANCER SCREENING DISCUSSION [facility] Start: 2014 Shingles vaccine (1 of 2) Shingles vaccine (1 of 2) [facility] Start: 2014 Zoster vaccine hzv l asia for subcutaneous use ZOSTER (SHINGLES) VACCINE (1 of 2) [facility] Start: 2009 Screening for malign ant neoplasm of colon [facility] Start: 2004 Protein mass conc MAMMOGRAM SC REENING DISCUSSION [facility] Start: 2004 Screening mammography MAMMOGRA M SCREENING DISCUSSION [facility] Start: 1985 Screening for malign ant neoplasm of cervix [facility] Start: 09-07-1983 Third diphtheria, tetanus and acellular pertussis (DTaP) vaccination TDAP (ADULT) [facility] Start: 1982 Tetanus vaccination [facility] Start: 1977 HIV screening HIV SCREENING DISCUSSION [facility] Start: 1976 Depression Screen Depression Screen [facility] End: 11-23-2019 Cytopathology procedure, preparation of smear, genital source PAP SMEAR Lab Routine Screening for cervical cancer 1 Occurrences starting 11/23/2019 until 11/23/2019 [place], [place] Comment on above: 1 Occurrences starti ng 11/23/2019 until 11/23/2019 Payers Date Payer Category Payer Self-pay 2022 Unknown [id number] 2019 Unknown [id number] 2018 Unknown xxxxxxxxxxxx [id number] 2018 Unknown [facility] [id number] 2018-Present [id number] 1964 Unknown [id number] 1964 Unknown [id number] 1964 Unknown [id number] 1964 Unknown [id number] 1964 Unknown [id number] 1964 Unknown [id number] 1964 Unknown [id number] 1964 Unknown [id number] 1964 Unknown [id number] 1965 Unknown [id number] 1965 Unknown [id number] 1965 Unknown [id number] 1965 Unknown [id number] 1965 Unknown [id number] 1959 Unknown [id number] 1960 Unknown [id number] Unknown [id number] Social History Date Type Detail Facility Tobacco smoking stat [facility] Unknown if ever smoked [facility] Possible Web Start: 1965 Sex Assigned At Not on file [facility] Start: 05-06-2015 End: 11-23-2019 Tobacco smoking status [facility] Former smoker [facility] History of tobacco use Cigarette Smoker M [place], [place] Start: 05-06-2015 End: 11-23-2019 Cigarettes smoked current (pack per day) - Reported [place], [place] Start: 11-23-2019 Alcohol intake Current drinke r of alcohol (finding) [place], [place] Start: 11-23-2019 Alcohol Comment [place], [place] History of tobacco use Current smoker [facility] Work Phone: Start: 05-06-2015 Tobacco use and exposure Smoke less tobacco non-user [facility] Work Phone: History of Present illness Narrative 06-17-2022 Neeru Sherman, PT - 06/17/2022 3:00 PM EST Note Date & Type Note Facility 06-17-2022 History of Present illness Narrative [facility] Outpatient Physical Therapy Daily Note Patient: Flower Langston : 1965 CSN #: [id number] Referring Physician: Reyna Stuart DO Date: 06/17/2022 Diagnosis: N81.4 Uterine prolpse, N81.10 Cystocele Treatment Diagnosis: Prolapse and weakness Onset Date: 05/01/22 PT Insurance Information: [employer] Total # of Visits Approved: 12 Per Physician Order Total # of Visits to Date: 2 No Show: 0 Canceled Appointment: 0 Pre-Treatment Pain: 0/10 Subjective: Pt states she believes the exercises are helping. 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 Pt has no pain today but states she is ready to continue. Exercises: HEP and added endurance Kegel Assessment Assessment: Pt is currently voicing understanding of progression of ex. Ex was advanced to facilitate pelvic floor contraction and contain the prolapse. Pt required mod verbal cues to slow pace and control. Also added the long hold kegel's for endurance. Will continue to progress as tolerated. Activity Tolerance Activity Tolerance: Patient tolerated evaluation without incident Patient Education Patient Education: New exercises Pt verbalized/demonstrated good understanding: [x] Yes [] No, pt required further clarification. Post Treatment Pain: 0/10 Plan Plan Frequency: 12 visits Plan weeks: 6 weeks Goals (Total # of Visits to Date: 2) Short Term Goals Time Frame for Short Term Goals: 6 visits Short Term Goal 1: Initiate HEP for strengthening and proper performance of kegel for better control of prolapse (Met) Short Term Goal 2: Teach position modification in order to better position with prolapse for proper and more effective strengthening.(Met) Short Term Goal 3: Bowel education to assist in avoiding constipation to reduce intra-abdominal pressure. (Met) [employer] Goals Time Frame for [employer] Goals : 12 visits Residential Goal 1: Pt will be independent and compliant with her HEP. [employer] Goal 2: Pt will report at least 40% improvement in overall symptoms regarding prolapse and the ability to perform job duties without incident. [employer] Goal 3: Pt PFIQ-7 questionnaire will improve by at least 7 points indicating improved control and tolerance to activities. 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 If the structures that hold it in place weaken, the uterus can slip from its normal position. This is called uterine prolapse. When this happens, the uterus drops down into the vagina. In severe cases, the uterus can stick out from the vagina. Surgery can be done to fix the problem. This will relieve your symptoms. Hysterectomy The surgical procedure To fix the prolapse, the uterus is removed. This is called hysterectomy. Then, the vagina is lifted and supported so it stays in place. This type of surgery can be done through the vagina or abdomen. Stitches (sutures) are used to attach the vagina to strong tissue in the pelvis.?Sometimes a synthetic material or biologic material is used to reinforce the repair.?This supports the top part of the vagina. Other procedures may be done to keep the vagina from slipping again. Incision made in vaginal wall Abdominal incisions Your incisions During surgery, the doctor reaches your pelvic organs through the vagina or the abdomen. If the pelvic organs are reached through the vagina, an incision is made in the wall of the vagina. If the pelvic organs are reached through the abdomen, several small incisions are made in the abdomen to insert tiny laparoscopic tools. Or one larger incision is made in the abdomen. The belly incision can be up and down (vertical) or across (transverse). ? Possible risks and complications of prolapse surgery ?Infection ?Bleeding ?Risks of anesthesia ?Damage to nerves, muscles, or nearby pelvic structures ?Blood clots ?Prolapse of the pelvic organ or organs occurring again ? [employer]. [address] [place] [address]. All rights reserved. This information is not intended as a substitute for professional medical care. Always follow your healthcare professional's instructions. Pelvic Organ Prolapse: Surgery for Cystocele Cystocele occurs when the bladder sags (prolapses) into the vagina. The goal of surgery is to repair the problem. This will help relieve your symptoms. Your surgery may include one or more repairs. ? The surgical procedure Cystocele can be treated with surgery done through the vagina. The sagging bladder is moved back into its normal position. Sutures (stitches) are placed in tissue between the bladder and the vagina. This helps hold the bladder in place. In some cases, another type of surgery is done. It can help correct weakness in the front wall of the vagina. The vagina is attached to strong tissues in the side wall of the pelvis. Your incisions During surgery, the doctor will reach your pelvic organs through the vagina or the abdomen. An incision may be made in the vaginal wall. Surgery through the abdomen may be done with a single?incision made up and down?(vertically) or across (transverse), or through several small incisions (called laparoscopy). Possible risks and complications of this surgery ?Infection ?Bleeding ?Risks of anesthesia ?Damage to nerves, muscles, or nearby pelvic structures ?Blood clots ?Prolapse of the pelvic organ or organs occurring again ? [employer] [address] [place] [address]. All rights reserved. This information is not intended as a substitute for professional medical care. Always follow your healthcare professional's instructions. Pelvic Organ Prolapse: Nonsurgical Treatment If your pelvic organ prolapse is mild or doesn?t bother you much, or if you have medical conditions that make surgery too risky, nonsurgical treatment may be a good choice. A device (pessary) to wear in your vagina can help ease your symptoms. You may also be given certain exercises (Kegels) to do. And you may need to make some lifestyle changes. Wearing a pessary A pessary helps support the prolapsed organ or organs. It is specifically fitted by your healthcare provider. A pessary may ease your symptoms, but it can?t repair prolapse. The pessary must be removed for cleaning. If you can?t do this, you will need to see your healthcare provider regularly. He or she will remove and clean your pessary. If you have questions or concerns about the pessary, be sure to talk with your provider. Doing Kegels Kegels are simple exercises that you can do to strengthen the pelvic floor muscles. They may ease your symptoms and prevent furt (more content not included)... 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 Advance Directives and Living Will Power of Medical Insurance Verifier Latest Code Status on File Code Status Date Activated Date Inactivated Comments Full Code 02/14/2016 5:22 PM 02/16/2016 1:23 PM Summary Purpose Family History No Family History Records FoundNo Family History Records FoundNo Family History Records FoundNo Family History Records FoundNo Family History Records FoundNo Family History Records Found Additional Source Comments INFORMATION SOURCE (unrecogn ized section and content) DATE CREATED AUTHOR 05/18/2020 Y[facility] de [facility] DATE CREATED AUTHOR AUTHOR'S ORGANIZ ATION 05/29/2021 [facility] DATE CREATED AUTHOR AUTHOR'S ORGANIZ ATION 06/18/2022 [facility] DATE CREATED AUTHOR AUTHOR'S ORGANIZ ATION 08/21/2022 [facility] DATE CREATED AUTHOR AUTHOR'S ORGANIZ ATION 12/04/2023 [facility] DATE CREATED AUTHOR AUTHOR'S ORGANIZ ATION 01/03/2024 [facility] Care Teams (unrecognized sec tion and content) 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 This clinical summary was aggregated from multiple sources. Caution should be exercised in using it in the provision of clinical care. This summary normalizes information from multiple sources, and as a consequence, information in this document may materially change the coding, format and clinical context of patient data. In addition, data may be omitted in some cases. CLINICAL DECISIONS SHOULD BE BASED ON THE PRIMARY CLINICAL RECORDS. [facility] [employer] provides no warranty or guarantee of the accuracy or completeness of information in this document.
[2024-01-28 10:16] LABS: Basophils Percent Auto 0.9 % (0.2-2.0); Eosinophils Absolute Auto 0.2 10^3/uL (0.0-0.7); Eosinophils Percent Auto 4.7 % (0.9-7.0); Hematocrit 38.7 % (36.0-48.0); Immature Granulocytes Abs Auto 0.02 10^3/uL (0.00-0.03); Immature Granulocytes Pct Auto 0.5 % (0.0-0.5); Lymphocytes Absolute Auto 1.7 10^3/uL (1.2-3.8); Mean Corpuscular HGB Conc 33.6 g/dL (29.9-35.2); Mean Corpuscular Hemoglobin 29.2 pg (26.7-34.0); Mean Platelet Volume 10.4 fL (9.5-13.5); Monocytes Absolute Auto 0.5 10^3/uL (0.3-0.8); Monocytes Percent Auto 11.1 % (1.7-12.0); Neutrophils Absolute Auto 1.8 10^3/uL (1.4-6.5); Neutrophils Percent Auto 42.8 % (43.0-75.0); Platelet Count 233 10^3/uL (150-450); Red Blood Count 4.45 10^6/uL (4.20-5.40); Red Cell Distribution Width 13.1 % (11.0-15.0); White Blood Count 4.2 10^3/uL (4.0-11.0)
[2024-01-28 11:04] LABS: Alanine Aminotransferase 78 U/L (14-59); Albumin Globulin Ratio 1.2; Albumin Level 3.8 g/dL (3.4-5.0); Alkaline Phosphatase 74 U/L (46-116); Anion Gap 9.6; Aspartate Amino Transferase 26 U/L (15-37); Bilirubin Total 0.3 mg/dL (0.2-1.0); Carbon Dioxide 29.5 mmol/L (21.0-32.0); Chloride 105 mmol/L (98-107); Chol HDL Ratio 4.1; Cholesterol 211 mg/dL (<=200); Estimated GFR (African America >60 (>=60); Estimated GFR (Non-African Ame >60 (>=60); Globulin 3.2 g/dL; Glucose 96 mg/dL (74-106); HDL Cholesterol 52 mg/dL (40-60); Potassium 4.1 mmol/L (3.5-5.1); Sodium 140 mmol/L (136-145); Thyroid Stimulating Hormone 1.453 uIU/mL (0.358-3.740); Triglycerides 63 mg/dL (<=150); VLDL CHOLESTEROL 12.6 mg/dL
[2024-01-28 11:20] LABS: Estimated Average Glucose 117 mg/dL; Glycohemoglobin A1C 5.7 % (4.5-6.2)
== END 2024-01-28 09:56 | disposition home or self-care (01) ==
LOC: LAB 09:56
PROVIDERS: Visit Provider Nurse Practitioner
DX: Z00.00 Encounter for general adult medical examination without abnormal findings (principal); Z13.1 Encounter for screening for diabetes mellitus; Z13.0 Encounter for screening for diseases of the blood and blood-forming organs and certain disorders involving the immune mechanism; Z13.220 Encounter for screening for lipoid disorders; E55.9 Vitamin D deficiency, unspecified; E03.9 Hypothyroidism, unspecified
CPT/HCPCS: 36415; 80053; 80061; 83036; 84443; 85025

== ENCOUNTER 2024-05-19 13:12 | Outpatient (OUT) | payer BC, SELFPAY ==
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
[2024-05-19 13:31] LABS: Basophils Absolute Auto 0.1 10^3/uL (0.0-0.1); Basophils Percent Auto 0.8 % (0.2-2.0); Eosinophils Absolute Auto 0.2 10^3/uL (0.0-0.7); Eosinophils Percent Auto 3.7 % (0.9-7.0); Hematocrit 41.4 % (36.0-48.0); Hemoglobin 13.9 g/dL (12.0-16.0); Immature Granulocytes Abs Auto 0.03 10^3/uL (0.00-0.03); Immature Granulocytes Pct Auto 0.5 % (0.0-0.5); Lymphocytes Absolute Auto 2.3 10^3/uL (1.2-3.8); Lymphocytes Percent Auto 37.8 % (20.5-60.0); Mean Corpuscular HGB Conc 33.6 g/dL (29.9-35.2); Mean Corpuscular Hemoglobin 29.6 pg (26.7-34.0); Mean Corpuscular Volume 88.3 fL (81.0-99.0); Mean Platelet Volume 10.7 fL (9.5-13.5); Monocytes Absolute Auto 0.5 10^3/uL (0.3-0.8); Monocytes Percent Auto 7.5 % (1.7-12.0); Neutrophils Percent Auto 49.7 % (43.0-75.0); Platelet Count 253 10^3/uL (150-450); Red Blood Count 4.69 10^6/uL (4.20-5.40); Red Cell Distribution Width 12.7 % (11.0-15.0)
[2024-05-19 13:37] LABS: Estimated Average Glucose 123 mg/dL; Glycohemoglobin A1C 5.9 % (4.5-6.2)
[2024-05-19 14:51] LABS: Alanine Aminotransferase 64 U/L (14-59); Albumin Globulin Ratio 1.1; Alkaline Phosphatase 76 U/L (46-116); Anion Gap 13.3; Aspartate Amino Transferase 27 U/L (15-37); BUN Creatinine Ratio 23.5; Bilirubin Total 0.6 mg/dL (0.2-1.0); Calcium 9.2 mg/dL (8.5-10.1); Carbon Dioxide 28.6 mmol/L (21.0-32.0); Chloride 105 mmol/L (98-107); Chol HDL Ratio 5.1; Cholesterol 270 mg/dL (<=200); Estimated GFR (African America >60 (>=60 mL/min/1.73m^2); Estimated GFR (Non-African Ame >60 (>=60 mL/min/1.73m^2); Globulin 3.5 g/dL; Glucose 92 mg/dL (74-106); HDL Cholesterol 53 mg/dL (40-60); Potassium 3.9 mmol/L (3.5-5.1); Sodium 143 mmol/L (136-145); Thyroid Stimulating Hormone 1.887 uIU/mL (0.358-3.740); Total Protein 7.5 g/dL (6.4-8.2); Triglycerides 102 mg/dL (<=150); VLDL CHOLESTEROL 20.4 mg/dL
[2024-05-19 15:03] LABS: Free T4 0.91 ng/dL (0.76-1.46)
== END 2024-05-19 13:13 | disposition home or self-care (01) ==
LOC: LAB 13:12
PROVIDERS: PCP Nurse Practitioner; Visit Provider Nurse Practitioner
DX: Z00.00 Encounter for general adult medical examination without abnormal findings (principal)
CPT/HCPCS: 36415; 80053; 80061; 82306; 83036; 84439; 84443; 85025

== ENCOUNTER 2025-01-19 07:46 | Outpatient (RCR) | payer BC, SELFPAY | END 2025-01-20 09:39 | disposition home or self-care (01) | LOC: PT 07:46 | PROVIDERS: PCP Nurse Practitioner; Visit Provider Nurse Practitioner | DX: H81.13 Benign paroxysmal vertigo, bilateral (principal) | CPT/HCPCS: 95992; 97161 ==

== ENCOUNTER 2025-02-24 15:41 | Outpatient (OUT) | payer BC, SELFPAY ==
--- NOTE | 2025-02-24 | MM_ITS ---
Patient Name: JANA LANGSTON MR#: [id number] : 1965 Exam Date: 02/24/2025 Ordering Doctor: DR. MARION LAZARO D.O. RADIOLOGY REPORT PROCEDURE: MM TOMOSYNTHESIS SCREENING BI COMPARISON: MM TOMOSYNTHESIS SCREENING BI, 01/26/2024. MG MAMM SCREEN 3D JER CAD, 05/09/2022. MG MAMM SCREEN 3D JER CAD, 10/26/2020. MG MAMM SCREEN JER W CAD, 06/13/2017. INDICATIONS: screening mamogram Calculator Name NCI Breast Cancer Risk Assessment Tool 5 Year Breast Cancer Risk Not Reported. Lifetime Breast Cancer Risk Not Reported. Personal Breast Cancer No Personal Ovarian Cancer No Treatments None Family Cancers None LOCATION: [facility] BREAST COMPOSITION: The breasts are heterogeneously dense, which may obscure small masses. FINDINGS: RIGHT BREAST: No significant suspicious finding. Benign-appearing lymph nodes are noted along the chest wall. Similar focal asymmetries are present. LEFT BREAST: No significant suspicious finding. Benign-appearing lymph nodes are noted along the chest wall. Similar focal asymmetries are present. DIAGNOSTIC CATEGORY 2--BENIGN FINDING. NO CHANGE FROM COMPARISON. RECOMMENDATIONS: ROUTINE MAMMOGRAM AND CLINICAL EVALUATION IN 12 MONTHS. Dictated by: Yeison Meyer MD on 02/25/2025 at 16:55 Approved by: Yeison Meyer MD on 02/25/2025 at 17:03
--- OUTSIDE RECORDS SUMMARY | 2025-02-24 15:45 | XMS_ITS | CCD ---
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 activity/volume] in Serum or Plasma ALT Lab Today Dyslipidemia (CMS/HCC) Expected: 08/17/2024 (Approximate), Expires: 05/19/2025 [facility] Work Phone: Comment on above: Expected: 08/17/2024 (Approximate), Expires: 05/19/2025 Start: 08-17-2024 End: 05-19-2025 Aspartate aminotransferase [Enzymatic activity/volume] in Serum or Plasma AST Lab Today Dyslipidemia (CMS/HCC) Expected: 08/17/2024 (Approximate), Expires: 05/19/2025 [facility] Comment on above: Expected: 08/17/2024 (Approximate), Expires: 05/19/2025 Start: 08-17-2024 End: 05-19-2025 Lipid 1996 panel - Serum or Plasma Lipid panel Lab Today Dyslipidemia (CMS/HCC) Expected: 08/17/2024 (Approximate), Expires: 05/19/2025 [facility] Comment on above: Expected: 08/17/2024 (Approximate), Expires: 05/19/2025 Start: 06-16-2024 End: 06-16-2024 Patient encounter procedure 06/16/2024 11:30 AM EST Office Visit [facility] [address] [place] [id number] Malcolm Nava, DOOR SERVICEMAN [address] [place], [place] [id number] Arrived [facility] Comment on above: Arrived Start: 05-19-2024 End: 05-19-2024 Patient encounter procedure [facility] Comment on above: Wellness examination (Primary Dx); Dyslipidemia (CMS/HCC); Unspecified inflammatory spondylopathy, lumbosacral region (CMS/HCC); Vitamin D deficiency; Environmental and seasonal allergies Start: 05-11-2024 End: 05-11-2024 Patient encounter procedure 05/11/2024 7:00 AM EST Office Visit [facility] [address] [facility] [place] [phone] India Smith, DOOR SERVICEMAN [address] [place], [place] [phone] ANGELINA GARBER Start: 02-05-2024 End: 02-05-2024 Patient encounter procedure 02/05/2024 11:00 AM EDT Office Visit [facility] [address] [place] [address] Malcolm Nava, YOVANI [address] [place], [place] [id number] Arrived [facility] Comment on above: Arrived Start: 02-04-2024 End: 02-04-2024 Patient encounter procedure 02/04/2024 2:15 PM EDT Office Visit [facility] [address] [place] [address] Reyna Stuart DO [address] [place] [address] [facility] Start: 02-03-2024 End: 02-02-2025 Comprehensive metabolic 2000 panel - Serum or Plasma Comprehensive metabolic panel Lab Routine Elevated liver enzymes Expected: 02/03/2024 (Approximate), Expires: 02/02/2025 [facility] Work Phone: Comment on above: Expected: 02/03/2024 (Approximate), Expires: 02/02/2025 Start: 02-01-2024 Influenza vaccination Influenza Vacc ine (#1) [facility] Start: 09-18-2023 Fasting lipid profile [facility] Start: 12-24-2022 DTaP/Tdap/Td vaccine (2 - Td or Tdap) DTaP/Tdap/Td vaccine (2 - Td or Tdap) [facility] Start: 11-22-2022 Screening for malign ant neoplasm of cervix Pap smear [facility] Start: 08-05-2022 End: 08-05-2022 Patient encounter procedure 08/05/2022 Appointment Physical Therapy Neeru Sherman, [facility] Start: 06-17-2022 End: 06-17-2022 Patient encounter procedure 06/17/2022 Appointment Physical Therapy Neeru Sherman, PT [facility] Start: 12-31-2021 Influenza vaccination Flu vaccine (# 1) [facility] Start: 11-27-2020 End: 11-27-2020 Office Visit 11/27/2020 Office Visit Obstetrics and Gynecology Wendy Moser, MANAGER POST - CNM [address] [facility] [address] [place] [address] [facility] Start: 11-22-2020 Shingles Vaccine (1 of 2) Rhodes gles Vaccine (1 of 2) [place], [place] Comment on above: Postponed from 09/06 (Unavailable) Start: 11-08-2020 COVID-19 Vaccine (3 - Booster for Moderna series) COVID-19 Vaccine (3 - Booster for Moderna series) [facility] Start: 09-18-2020 Lipid panel [facility] Start: 02-01-2020 Influenza vaccination Flu vacc ine (Season Ended) [place], [place] Start: 12-14-2019 DTaP/Tdap/Td vaccine (1 - Tdap) DTaP/Tdap/Td vaccine (1 - Tdap) [place] Comment on above: Postponed from 09/06 (Not Indicated) Start: 10-01-2017 Screening for malign ant neoplasm of colon Colon cancer screen colonoscopy [place], [place] Start: 03-03-2017 Screening for malign ant neoplasm of cervix Cervical cancer screen [place], [place] Start: 03-03-2016 Screening for malign ant neoplasm of breast Breast cancer screen [facility] Start: 2014 Colonoscopy COLORECTAL CAN CER SCREENING DISCUSSION [facility] Start: 2014 Protein mass conc COLON CANCER SCREENING DISCUSSION [facility] Start: 2014 Shingles vaccine (1 of 2) Rhodes gles vaccine (1 of 2) [facility] Start: 2014 Zoster vaccine hzv l asia for subcutaneous use ZOSTER (SHINGLES) VACCINE (1 of 2) [facility] Start: 2009 Screening for malign ant neoplasm of colon [facility] Start: 2004 Protein mass conc MAMMOGRAM SC REENING DISCUSSION [facility] Start: 2004 Screening mammography MAMMOGRA M SCREENING DISCUSSION [facility] Start: 1985 Screening for malign ant neoplasm of cervix [facility] Start: 09-07-1983 Third diphtheria, te tanus and acellular pertussis (DTaP) vaccination TDAP (ADULT) [facility] Start: 1982 Tetanus vaccination [facility] Start: 1977 HIV screening HIV SCREENING DISCUSSION [facility] Start: 1976 Depression Screen Depression Screen [facility] Start: 1964 Screening for malign ant neoplasm of colon [facility] End: 11-23-2019 Cytopathology procedure, preparation of smear, genital source PAP SMEAR Lab Routine Screening for cervical cancer 1 Occurrences starting 11/23/2019 until 11/23/2019 [facility] [place], [place] Comment on above: 1 Occurrences starti ng 11/23/2019 until 11/23/2019 IGP, RFX APTIMA HPV ASCU IGP, RF X APTIMA HPV ASCU Lab Routine Screening for malignant neoplasm of cervix Ordered: 09/16/2024 [facility] Work Phone: Comment on above: Ordered: 09/16/2024 Immunizations Immunization Date Immunization Notes Care Provider Carmela saenz 11-27-2021 zoster vaccine, live India R ine DOOR SERVICEMAN Work Phone: [facility] 09-26-2021 zoster vaccine, live India R ine DOOR SERVICEMAN Work Phone: [facility] 08-02-2021 hepatitis B vaccine, adult dosage India Rine DOOR SERVICEMAN Work Phone: [facility] 01-23-2021 hepatitis B vaccine, adult dosage India Rine DOOR SERVICEMAN Work Phone: [facility] 12-19-2020 hepatitis B vaccine, adult dosage India Rine DOOR SERVICEMAN Work Phone: [facility] 04-04-2020 influenza, injectabl e, quadrivalent, contains preservative India Rine DOOR SERVICEMAN Work Phone: [facility] 04-04-2020 influenza virus vacc ine, unspecified formulation India Rine DOOR SERVICEMAN Work Phone: [facility] 03-06-2018 influenza, injectabl e, quadrivalent, preservative free India Rine DOOR SERVICEMAN Work Phone: [facility] 03-03-2017 influenza, injectabl e, quadrivalent, contains preservative India Rine DOOR SERVICEMAN Work Phone: [facility] 03-27-2016 influenza, injectabl e, quadrivalent, contains preservative India Rine DOOR SERVICEMAN Work Phone: [facility] 12-24-2012 tetanus toxoid, redu bob diphtheria toxoid, and acellular pertussis vaccine, adsorbed India Rine DOOR SERVICEMAN Work Phone: [facility] Payers Date Payer Category Payer Self-pay 2022 [facility] BCBS [id number] 2022 Unknown BCBS BCBS [id number] 2022-Present [phone] [place], [place] [address] [id number] 2022 Unknown [id number] 2019 Unknown [id number]. [id number] 2018 Unknown [id number]. [id number] 2018 Unknown [facility] [id number] 2018-Present [id number] [id number]. [id number] 1964 Unknown [id number] 2.16.840.1.272444.3.579.2. 173 1964 Unknown [id number] 2.16.840.1.724266.3.579.2. 173 1964 Unknown [id number] 2.16.840.1.891588.3.579.2. 173 1964 Unknown [id number] 2.16.840.1.236196.3.579.2. 593 1964 Unknown [id number] 2.16.840.1.883318.3.579.2. 593 1964 Unknown [id number] 2.16840.1.484210.3.579.2. 593 1964 Unknown [id number] 2.840.1.577149.3.579.2. 593 1964 Unknown [id number] 2.840.1.012485.3.579.2. 125 1964 Unknown [id number] 2.840.1.105144.3.579.2. 125 1964 Unknown [id number] 2.16840.1.516104.3.579.2. 1259 1964 Unknown [id number] 2.16840.1.657299.3.579.2. 1259 1964 Unknown [id number] 2.16840.1.249775.3.579.2. 1259 1964 Unknown [id number] 2.16840.1.890633.3.579.2. 1259 1964 Unknown [id number] 2.16840.1.300056.3.579.2. 1259 1964 Unknown [id number] 2.16840.1.884649.3.579.2. 1259 1964 Unknown [id number] 2.16840.1.460227.3.579.2. 1259 1964 Unknown [id number] 2.16.840.1.183963.3.579.2. 1259 1964 Unknown [id number] 2.16.840.1.851138.3.579.2. 1259 1959 Unknown [id number] 1959 Unknown [id number] Unknown [id number] 2.16.840.1.144032.3.579.2. 531 Social History Date Type Detail Facility Tobacco smoking stat [facility] Unknown if ever smoked [facility] Start: 1965 Sex Assigned At Not on file [facility] Start: 05-06-2015 End: 11-23-2019 Tobacco smoking status [facility] Former smoker [facility] [employer] [facility] History of tobacco use Cigarette Smoker [place], [place] Start: 11-23-2019 End: 05-19-2024 Cigarettes smoked current (pack per day) - Reported [facility] Start: 11-23-2019 End: 09-28-2024 Alcohol intake Current drinker of alcohol (finding) [place], [place] Start: 11-23-2019 Alcohol Comment [place] [facility] of [facility] use [facility] Start: 05-06-2015 End: 04-15-2023 Tobacco use and exposure Smokeless tobacco non-user [facility] Phone: Start: 1965 Sex Assigned At [facility] Start: 04-15-2023 Tobacco smoking status [facility] Never smoked tobacco [facility] Start: 04-14-2023 End: 05-19-2024 Alcohol Use Disorder Identification Test - Consumption [...] Healthcare Start: 08-23-2023 Sexual orientation Heterosexual (finding) [facility] Clinical Notes 05-21-2021 to 09-28-2024 India Smith, DOOR SERVICEMAN - 09/28/2024 8:30 AM EDTPatient InstructionsTelephone Encounter - India Smith, DOOR SERVICEMAN - 09/22/2024 7:10 AM EDTTelephone Encounter - India Smith, DOOR SERVICEMAN - 09/22/2024 7:10 AM EDT Note Date & Type Note Facility 09-28-2024 History of Present illness Narrative Images from the original note were not included. Flower Langston is a 59 y.o. female presents with chief complaint of Dizziness HPI: Dizziness Associated symptoms include nausea. Pertinent negatives include no abdominal pain, arthralgias, chest pain, coughing or weakness. History of Present Illness The patient presents for evaluation of vertigo. Vertigo is reported, which is exacerbated by movement and driving. The onset of symptoms was noted during sleep last night, particularly when changing positions in bed. A sensation of pressure and mild pain in the right ear is described, despite being informed that the ears appeared normal yesterday. Clear fluid is noted behind both ears, with more on the right side. This is the first experience with such symptoms. She was tx for same on September 22, 2024. Flonase has been used twice daily, in the morning and at night. Claritin was previously taken but discontinued. Currently, Sudafed and meclizine are being used, with meclizine taken three times daily. A course of prednisone 40 mg for 3 days was completed, with the last dose taken yesterday. Improvement in dizziness during the initial days of prednisone treatment is reported. No associated fatigue is experienced with meclizine. Congestion and pressure in the ears are also reported. A neck and back massager has been ordered for potential symptom relief. SUBJECTIVE: MEDICATIONS: Current Outpatient Medications Medication Instructions Cholecalciferol (Vitamin D) 125 MCG (5000 UT) capsule 2 capsules, Daily fluticasone (Flonase) 50 MCG/ACT nasal spray 1-2 sprays, Each Nostril, Daily, Shake gently. Before first use, prime pump. After use, clean tip and replace cap. L-lysine 1000 MG tablet Take by mouth loratadine (Claritin) 10 MG tablet Take by mouth loratadine (CLARITIN) 10 mg, Oral, Daily meclizine (ANTIVERT) 25 mg, Oral, 3 times daily PRN Moringa Oleifera (MORINGA PO) Take by mouth Multiple Vitamins-Minerals (Multi For Her) tablet Every 24 hours predniSONE (Deltasone) 20 MG tablet 2 daily for 3 days, then 1 daily for 3 days predniSONE (Deltasone) 20 MG tablet 2 daily for 4 days, then 1 daily for 4 days pseudoephedrine (SUDAFED) 30 mg, Every 4 hours PRN vitamin E 180 mg, Daily ALLERGIES: Allergies Allergen Reactions Cefdinir GI intolerance Haloperidol Unknown Penicillin G Other Reaction(s): uncertain remote, told by mother SURGICAL HISTORY: Past Surgical History: Procedure Laterality Date ADENOIDECTOMY CERVICAL BIOPSY W/ LOOP ELECTRODE EXCISION 05/[address] Hull COLONOSCOPY 07/2015 CYST REMOVAL Right wrist OTHER SURGICAL HISTORY 2018 IUD removal TONSILLECTOMY VARICOSE VEIN SURGERY bilateral [...] Drug use: Never Depression: Not at risk (05/19/2024) PHQ-2 PHQ-2 Score: 0 REVIEW OF SYMPTOMS: Review of Systems Constitutional: Negative for activity change. HENT: Negative for ear pain, rhinorrhea and sinus pressure. Eyes: Negative for visual disturbance. Respiratory: Negative for cough and wheezing. Cardiovascular: Negative for chest pain and leg swelling. Gastrointestinal: Positive for nausea. Negative for abdominal pain. Genitourinary: Negative for difficulty urinating. Musculoskeletal: Negative for arthralgias. Neurological: Positive for dizziness. Negative for weakness. Psychiatric/Behavioral: Negative. Allergic/Immunologic: Positive for environmental allergies. ..I have reviewed and reconciled the history, allergies, family history, social history, and the medication list with the patient today. OBJECTIVE: Visit Vitals BP 100/60 (BP Location: Left arm, Patient Position: Sitting, BP Cuff Size: Adult) Pulse 80 Temp 96.5 F (Tympanic) Resp 18 Ht 5' 1 Wt 153 lb SpO2 97% BMI 28.91 kg/m OB Status Postmenopausal Smoking Status Never BSA 1.73 m Physical Exam Constitutional: Appearance: Normal appearance. HENT: Head: Normocephalic and atraumatic. Right Ear: Ear canal and external ear normal. Left Ear: Ear canal and external ear normal. Ears: Comments: Tms dull with clear fluid Nose: Nose normal. Mouth/Throat: Mouth: Mucous membranes are moist. Eyes: Pupils: Pupils are equal, round, and reactive to light. Comments: Puffiness around eyes Dark circles beneath eyes Cardiovascular: Rate and Rhythm: Normal rate and regular rhythm. Heart sounds: No murmur heard. Pulmonary: Effort: Pulmonary effort is normal. Breath sounds: Normal breath sounds. Musculoskeletal: Cervical back: Normal range of motion. Comments: Moving slowly Skin: General: Skin is warm and dry. Findings: No rash. Neurological: Mental Status: She is alert and oriented to person, place, and time. Comments: Cardinal field of gaze w/o nystagmus but does elicit subjective vertigo Psychiatric: Mood and Affect: Mood normal. Comments: Alert and interactive frustrated ASSESSMENT AND PLAN: Assessment/Plan Diagnoses and all orders for this visit: Vertigo Comments: see avs regarding meds, another pred round, referral to PT Orders: - predniSONE (Deltasone) 20 MG tablet; 2 daily for 4 days, then 1 daily for 4 days - meclizine (Antivert) 25 MG tablet; Take 1 tablet (25 mg) by mouth 3 (three) times a day as needed for dizziness - loratadine (Claritin) 10 MG tablet; Take 1 tablet (10 mg) by mouth Daily - Ambulatory referral to Physical Therapy; Future Encounter for screening mammogram for breast cancer Comments: pt to schedule mammo Orders: - Bilateral screening mammogram with tomosynthesis Follow up for as needed, may 2025 . documented in this encounter [facility] 09-28-2024 Instructions India Smith NP - 09/28/2024 8:30 AM EDT Use flonase daily Tomorrow start loratadine (claritin) 10mg in the am Take meclizine up to every 6 hours as needed, refill on that Restart prednisone burst 8 days Ok for psuedofed otc Abelardo maneuvers can be tried , we will see about referral to integrated ortho, call for appt for vestibular program Call if no better documented in this encounter [facility] 09-22-2024 Telephone encounter Note Sent pred / mecliine per c/o vertigo see emessage [facility] 09-22-2024 Miscellaneous Notes Sent pred / mecliine per c/o vertigo see emessage documented in this encounter [facility] 09-16-2024 History of Present illness Narrative Images from the original note were not included. Reyna Stuart D.O. Obstetrics and Gynecology Patient: Flower Langston : 1965 (59 y.o.) Yearly Wellness Exam Date: 09/16/2024 Reason for Visit - Chief Complaint Patient presents with Gynecologic Exam Pt up to date with mammogram. Pt states has Pessary in today. Denies bowel/bladder/breast concerns. Denies vaginal bleeding/spotting. Visit Vitals BP 124/76 Wt 152 lb BMI 28.72 kg/m OB Status Postmenopausal Smoking Status Never BSA 1.72 m Allergies Allergen Reactions Cefdinir GI intolerance Haloperidol Unknown Penicillin G Other Reaction(s): uncertain remote, told by mother History of Present Illness, Associated Treatments and Results - OB History Para Term AB Living 4 0 0 0 1 3 SAB IAB Ectopic Multiple Live Births 1 0 0 0 3 # Outcome Date GA Lbr Fernando/2nd Weight Sex Type Anes PTL Lv 4 Vag-Spont ARLENE 3 Vag-Spont ARLENE 2 Vag-Spont ARLENE 1 SAB Obstetric Comments Largest baby was 8lb Last pap smear date 08/27/23 wnl Last mammogram date 01/26/24 wn @[facility] Review of Systems - General: Chills denies. Allergy/Immunology: Rash Denies. ENT: Denies Difficulty swallowing. Endocrine: Denies Cold intolerance denies. Heat intolerance denied. Respiratory: Denies Chest pain denies. Shortness of breath denies. Breast: Denies Bloody nipple discharge denies. Breast lump denies. Cardiovascular: Denies Chest pain. Gastrointestinal: Abdominal pain denies. Blood in stool denies. Hematology: Easy bruising denies. Prolonged bleeding denies. Women Only: Breast lump denies. Vaginal bleeding between periods is denied. Vaginal discharge/itching denied. Genitourinary: Blood in urine denies. Painful urination denies. Incontinence denies. Skin: Hair changes. Neurologic: Seizures denied. Stroke denies. Psychiatric: Anxiety denies. Depressed mood denies. Medication Documentation Review Audit Reviewed by Zenia Kimball MA (Internet Marketing Consultant) on 09/16/24 at 1331 Medication Order Taking? Sig Documenting Provider Last Dose Status Cholecalciferol (Vitamin D) 125 MCG (5000 UT) capsule [id number] Take 2 capsules by mouth Daily India Smith NP Active fluticasone (Flonase) 50 MCG/ACT nasal spray [id number] Administer 1-2 sprays into each nostril Daily Shake gently. Before first use, prime pump. After use, clean tip and replace cap. Malcolm Nava NP Active Patient not taking: Discontinued 09/16/24 1322 L-lysine 1000 MG tablet [id number] Take by mouth India Smith NP Active loratadine (Claritin) 10 MG tablet [id number] Yes Take by mouth Reyna Stuart, DO Active Moringa Oleifera (MORINGA PO) [id number] Take by mouth India Smith NP Active Multiple Vitamins-Minerals (Multi For Her) tablet [id number] Take by mouth 1 (one) time each day at the same time Taking [employer] powder supplement India Smith NP Active pseudoephedrine (Sudafed) 30 MG tablet [id number] Take 30 mg by mouth every 4 (four) hours if needed for congestion Patient not taking: Reported on 08/18/2024 Malcolm Nava NP Active vitamin E 180 MG (400 UNIT) capsule [id number] Take 180 mg by mouth Daily Takes 2 tabs India Smith NP Active Past Medical History: Diagnosis Date Back problem Cyst of left breast 04/14/2023 History of blood clots OA (osteoarthritis) Past Surgical History: Procedure Laterality Date ADENOIDECTOMY CERVICAL BIOPSY W/ LOOP ELECTRODE EXCISION 05/[address] Hull COLONOSCOPY 07/2015 CYST REMOVAL Right wrist OTHER SURGICAL HISTORY 2019 IUD removal TONSILLECTOMY VARICOSE VEIN SURGERY bilateral lower extremities Family History Problem Relation Name Age of Onset Heart disease Mother Hyperlipidemia Mother Migraines Mother Allergies Mother Lung cancer Mother Colon cancer Father Peripheral vascular disease Father Heart disease Father Stroke Maternal Grandmother No Known Problems Maternal Grandfather Diabetes Paternal Grandmother Leukemia Paternal Grandfather Physical Exam - General appearance, mentation, extraocular movements, facial strength and movement, hearing, upper and lower extremity strength and tone, sensation to gross testing, coordination, and gait are normal or at baseline unless noted below. General Examination: GENERAL APPEARANCE: alert oriented well developed, well nourished. HEAD: normocephalic atraumatic. EYES: sclera anicteric. EARS: no obvious hearing deficit. SKIN: warm and dry. HEART: regular rate and rhythm. LUNGS: clear to auscultation bilaterally. CHEST: axillary nodes grossly normal. BREASTS: no masses palpable bilaterally, normal nipples bilaterally. ABDOMEN: soft, nontender, nondistended, no masses palpable. BACK: no costovertebral angle tenderness, no obvious scoliosis/kyphosis. FEMALE GENITOURINARY: atrophic vaginal mucosa, cervix absent of lesions, nontender, uterus AV, mobile, ovaries nonpalpable and nontender, uterine prolapse grade 2, cystocele grade 3 EXTREMITIES: no edema. NEUROLOGIC: alert and oriented. PSYCH: cooperative with exam. Diagnoses and all orders for this visit: Encounter for gynecological examination without abnormal finding Screening for malignant neoplasm of cervix - IGP, RFX APTIMA HPV ASCU Encounter for screening mammogram for breast cancer - Bilateral screening mammogram with tomosynthesis; Future Cystocele, midline Uterine prolapse Pap, pelvic and breast exam completed. Findings of today's exam discussed with the patient. Continue MSBE. Ca/Vit D recommendations reviewed with the patient. The patient is to contact the office with any changes to her gynecological condition. The patient is to return in 1 year or as needed Doing well with pessary- no concerns. ICD-10-CM 1. Encounter for gynecological examination without abnormal finding Z01.419 2. Screening for malignant neoplasm of cervix Z12.4 IGP, RFX APTIMA HPV ASCU 3. Encounter for screening mammogram for breast cancer Z12.31 Bilateral screening mammogram with tomosynthesis 4. Cystocele, midline N81.11 5. Uterine prolapse N81.4 documented in this encounter [facility] 06-28-2024 History of Present illness Narrative Flower Langston is a 58 y.o. female presents with chief complaint of ongoing earache HPI: HPI Patient Reported S/S to Nurse: Reviewed HD- C/o dizziness started on Friday Reports sleeping all friday Continues to have sinus and ear pressure Finished kimberlyn and camelia moser Currently taking sudafed and dayquil LAB- 05/2024 ; open labs for 07/2024 HEP C SCREENING- 09/2020- NR PAP- 08/08/2022- NILM; 10/2021- HPV- neg MAMMO- 01/26/2024- birads2 ([place]) COLON- 11/2015- WNL WELLNESS- 05/2024 DENTIST- Dr Soni MONOTYPE MACHINIST- Dr Ellis BALANCE BRIDGE INSPECTOR- [facility]ade/[facility] SUBJECTIVE: MEDICATIONS: Current Outpatient Medications Medication Instructions Cholecalciferol (Vitamin D) 125 MCG (5000 UT) capsule 2 capsules, Daily cyancobalamine (VITAMIN B-12) 250 mcg, Oral, Daily fluticasone (Flonase) 50 MCG/ACT nasal spray 1-2 sprays, Each Nostril, Daily, Shake gently. Before first use, prime pump. After use, clean tip and replace cap. ibuprofen 800 mg, Every 8 hours meclizine (ANTIVERT) 12.5 mg, Oral, 3 times daily PRN Multiple Vitamins-Minerals (Multi For Her) tablet Every [...] Drug use: Never Depression: Not at risk (05/19/2024) PHQ-2 PHQ-2 Score: 0 REVIEW OF SYMPTOMS: Review of Systems Constitutional: Negative for activity change, appetite change, chills, diaphoresis, fatigue and fever. HENT: Positive for ear pain and sinus pressure. Negative for congestion, ear discharge, hearing loss, postnasal drip, sinus pain, sore throat, trouble swallowing and voice change. Respiratory: Negative for cough, chest tightness, shortness of breath and wheezing. Cardiovascular: Negative for chest pain, palpitations and leg swelling. Gastrointestinal: Negative for constipation, diarrhea, nausea and vomiting. Neurological: Positive for dizziness. Negative for syncope, speech difficulty, weakness and light-headedness. Psychiatric/Behavioral: Negative. OBJECTIVE: Visit Vitals BP 130/72 Pulse 71 Temp 97.1 F (Tympanic) Ht 5' 1 Wt 152 lb SpO2 98% BMI 28.72 kg/m OB Status Postmenopausal Smoking Status Never BSA 1.72 m Physical Exam Vitals and nursing note reviewed. Constitutional: Appearance: Normal appearance. She is not ill-appearing. HENT: Head: Normocephalic and atraumatic. Right Ear: Tympanic membrane, ear canal and external ear normal. There is no impacted cerumen. Left Ear: Tympanic membrane, ear canal and external ear normal. There is no impacted cerumen. Nose: No congestion or rhinorrhea. Right Sinus: Maxillary sinus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
== END 2025-02-24 15:42 | disposition home or self-care (01) ==
LOC: MAMMO 15:41
PROVIDERS: PCP Nurse Practitioner; Visit Provider Obstetrics & Gynecology
DX: Z12.31 Encounter for screening mammogram for malignant neoplasm of breast (principal)
CPT/HCPCS: 77063; 77067

== ENCOUNTER 2025-05-03 13:01 | Outpatient (OUT) | payer BC, SELFPAY ==
--- NOTE | 2025-05-03 13:06 | ECG_ITS ---
[facility] Test Date: 2025-05-03 Pat Name: JANA LANGSTON Department: Room: - Gender: Female Direct Care Worker: : 1965 Requested By: [id number] Order Number: [id number] Reading MD: KAMILAH CRAMER M.D. Measurements Intervals Somis Rate: 66 P: 73 AL: 126 QRS: 84 QRSD: 92 T: 73 QT: 394 QTc: 414 Interpretive Statements SINUS RHYTHM Normal ECG No previous ECG available for comparison Electronically Signed On 05-03-2025 19:59:10 EST by KAMILAH CRAMER M.D.
--- OUTSIDE RECORDS SUMMARY | 2025-05-03 13:06 | XMS_ITS | Clinical Summary ---
Author Organization [facility] Address [address] [place] [address] Care Team Providers Care Pharmacy Manager Name Role Phone Alonzo Reyes DO Primary Care Provider [phone] Social History Tobacco UseTypesPacks/DayYears UsedDateSmoking Tobacco: Never Assessed CommentsUnknownSex and Gender InformationValueDate RecordedSex Assigned at Not on fileLegal XxvVrjhug87/05/2018 2:28 PM EDTGender LybjorffRovkbt13/05/2018 2:29 PM EDTSexual OrientationNot on file Plan of Treatment Health MaintenanceDue DateLast DoneCommentsHIV SCREENING ICTBTACEES76/07/1980 CERVICAL CANCER SCREENING QGAYDJCXHP43/07/1986MAMMOGRAM SCREENING DISCUSSION 2004COLORECTAL CANCER SCREENING NTUJGDJIAV51/07/2010PNEUMOCOCCAL VACCINE SERIES (1 of 1 - PCV)2014ZOSTER (SHINGLES) VACCINE (1 of 2)2014 QQJKGGM41/LIPID RAEANOABJ75/COVID-19 VACCINE (1 - 2024- season)2025INFLUENZA VACCINE (#1)/08/2019, 03/06/2018, 03/03/2017, Additional history existsRSV VACCINE (1 - 1-dose 75+ series)09/07/2039TDAP (ADULT)Ynneyarku78/25/2013HEPATITIS C VIRUS SCREENING Rlsgfuxja92/05/2018HEP B VACCINEAged OutNo longer eligible based on patient's age to complete this topic Procedures Procedure NamePriorityDate/TimeAssociated DiagnosisCommentsLIPID PANEL W CALCULATED LEQRwtcrkp07/18/2019 7:55 AM EDT HEPATITIS C KXGOSRXFQybhgdq59/05/2018 9:59 AM EDT from Last 3 Months or Most Recently Relevant to Health Maintenance Results * (ABNORMAL) LIPID PANEL W CALCULATED LDL (09/17/2018 7:55 AM EDT)ComponentValue Ref RangeTest MethodAnalysis TimePerformed AtPathologist SignatureCHOLESTEROL 221(H)107 - 217 MG/DLLAB, MCHSDAPPOFMMQMS726 - 150 MG/DLLAB, [facility]HDL LTWIBIQGNDB0731 - 75 MG/DLLAB, OSULDL CHOLESTEROL, KKIMPGZAKA663GQ/DLLAB, [facility] VLDL Cholesterol, Dyydofnctd167.0 - 25 MG/DLLAB, OSUTCHOL/HDL RATIO, MANUAL ENTER4.91RATIOLAB, OSUComment: RISK ?TOTAL/HDL RATIO ?MEN ? WOMEN 1/2 AVERAGE ?3.43 ?3.27 AVERAGE ?4.97 ?4.44 2X AVERAGE ? 9.55 ?7.05 3X AVERAGE ?23.99 ? 11.04 Specimen (Source)Anatomical Location / LateralityCollection Method / Volume Collection TimeReceived Time09/17/2018 7:55 AM EDT09/17/2018 7:56 AM EDT Narrative Authorizing ProviderResult TypeResult StatusMichael Eric DOCHEMISTRY ORDERABLESFinal ResultPerforming OrganizationAddressCity/State/ZIP CodePhone Number LAB, [facility] [address] [place] [address] * HEPATITIS C ANTIBODY (03/06/2018 9:59 AM EDT)ComponentValueRef RangeTest MethodAnalysis TimePerformed AtPathologist SignatureHEP C AB<0.10.0 - 0.9 s/co ratioQUESTComment: (NOTE) Negative: < 0.8 ?Indeterminate: 0.8 - 0.9 Positive: > 0.9 The CDC recommends that a positive HCV antibody result be followed up with a HCV Nucleic Acid Amplification test (079944). PERFORMED AT [facility] Specimen (Source)Anatomical Location / LateralityCollection Method / Volume Collection TimeReceived Time03/06/2018 9:59 AM EDT1 2:44 PM EDT Narrative Authorizing ProviderResult TypeResult StatusBrooke Stamper PROFESSOR COMPUTER SCIENCE-CNPIMMUNOLOGY ORDERABLESFinal ResultPerforming OrganizationAddressCity/State/ZIP CodePhone Number [facility] from Last 3 Months or Most Recently Relevant to Health Maintenance Insurance Care Teams Team MemberRelationshipSpecialtyStart DateEnd Date Alonzo Reyes DO [address] [place], [place] [id number] PCP - GeneralFamily Medicine09/17/18
--- OUTSIDE RECORDS SUMMARY | 2025-05-03 13:06 | XMS_ITS | Clinical Summary ---
Author Organization [facility] Address [address] [place] [address] Care Team Providers Care Cuprous Chloride Helper Name Role Phone EricAlonzo winkler Michelle MENDES Primary Care Provider [phone] Allergies Active AllergyReactionsCriticalityNoted DateCommentsCefdinirGI intolerance 04/14/20231661MsogexfjzbpFgfmqvu67/13/2023enicillin G106/14/2022 Other Reaction(s): uncertain remote, told by mother Medications MedicationSigDispense QuantityRefillsLast FilledStart DateEnd DateStatus Multiple Vitamins-Minerals (Multi For Her) tablet Take by mouth 1 (one) time each day at the same time Taking wellco brand powder supplementActive pseudoephedrine (Sudafed) 30 MG tablet Take 30 mg by mouth every 4 (four) hours if needed for congestionActive vitamin E 180 MG (400 UNIT) capsule Take 180 mg by mouth Daily Takes 2 tabsActive Cholecalciferol (Vitamin D) 125 MCG (5000 UT) capsule Take 2 capsules by mouth DailyActive fluticasone (Flonase) 50 MCG/ACT nasal spray Indications:Seasonal allergic reactionAdminister 1-2 sprays into each nostril Daily Shake gently. Before first use, prime pump. After use, clean tip and replace cap. 16 g 5Active L-lysine 1000 MG tablet Take by mouthActive Moringa Oleifera (MORINGA PO) Take by mouthActive loratadine (Claritin) 10 MG tablet Take by mouthActive predniSONE (Deltasone) 20 MG tablet Indications:Vertigo2 daily for 3 days, then 1 daily for 3 days 9 tablet 5Active predniSONE (Deltasone) 20 MG tablet Indications:Vertigo2 daily for 4 days, then 1 daily for 4 days 12 tablet 5Active meclizine (Antivert) 25 MG tablet Indications:VertigoTake 1 tablet (25 mg) by mouth 3 (three) times a day as needed for dizziness 30 tablet 5Active loratadine (Claritin) 10 MG tablet Indications:VertigoTake 1 tablet (10 mg) by mouth Daily5Active metFORMIN XR (Glucophage-XR) 500 MG 24 hr tablet Indications:Insulin resistanceTake 1 tablet (500 mg) by mouth in the evening. Take with meals Do not crush, chew, or split. 30 tablet 1116Active Active Problems ProblemNoted DateDiagnosed DateHistory of deep venous thrombosis (DVT) of distal vein of right lower kjtdvyujq52/18/2024egenerative disc disease, thoracic 04/14/2023isc disorder of lumbar knumpj2804/14/2023Herniation of intervertebral disc between L5 and S1106/14/2022Environmental and seasonal vszpfetxa76/13/2023 Female vedhhazee48/13/2023Uterine qmkireng47/13/2023Hepatic cyst04/14/2023 Myofascial pain04/14/2023Unspecified inflammatory spondylopathy, lumbosacral mfxolq8404/14/2023Vitamin D oafpfufxix24/13/2023 Resolved Problems ProblemNoted DateDiagnosed DateResolved DateCyst of left kjgiaw3104/14/2023 05/19/20249327Xhkesmineufs15Elevated lupqklofjsf30/13/2023 05/19/2024Encounter for screening for COVID-191/Seasonal allergic xszbcefi65Lumbago with sciatica, left side04/14/2023 05/19/2024Lumbago with sciatica, right side/Sinusitis Stress skajfcwt30Vaginal discomfort 4Headachecute babdehuaxzxnlm75/14/2016 05/19/2024Left leg DVT Overview (04/15/2023): control related Encounters DateTypeDepartmentCare CmqqRncbevxrrso54/15/2025 1:10 PM EDTOffice Visit [facility] [address] [phone] Russ Tolentino, DO Uterine prolapse; Female cystocele; Insulin pjswglixkt92/15/2025amboo flowsheet [facility] OBCAITLINN [address] [place] [phone] Russ Tolentino DO 03/16/20255759Oecggz32/06/2025Orders Only [facility] OBROMINA [address] [place] [phone] Dania Richardson LPN 02/28/2025Orders Only [facility] [address] [place] [phone] India Whyte, YOVANI 02/02/2025Telephone [facility] [address] [place] [phone] Zenia Kimball MA from Last 3 Months Immunizations ImmunizationAdministration DatesNext DueHep B, adult08/02/2021,01/23/2021, 12/19/2020Influenza, Injectable, MDCK, preservative free04/02/2024Influenza, injectable, rjitvrwddckn08/03/2020,03/03/2017,03/27/2016Influenza, injectable, quadrivalent, preservative free03/06/2018Tdap11/23/2024,12/24/2012Zoster, live 11/27/2021,09/26/2021 Family History Medical HistoryRelationNameCommentsColon cancerFatherHeart diseaseFather Peripheral vascular diseaseFatherNo Known ProblemsMaternal GrandfatherStroke Maternal GrandmotherAllergiesMotherHeart diseaseMotherHyperlipidemiaMotherLung cancerMotherMigrainesMotherLeukemiaPaternal GrandfatherDiabetesPaternal GrandmotherRelationNameStatusCommentsDaughterAliveFatherDeceasedMaternal GrandfatherDeceasedMaternal GrandmotherDeceasedMotherDeceasedPaternal GrandfatherDeceasedPaternal IsjnmksqtjiPvheyyymBtvtxi4SuwXxgtf9 Social History Tobacco UseTypesPacks/DayYears UsedDateSmoking Tobacco: NeverSmokeless Tobacco: Never Tobacco Cessation:Counseling Given: No Alcohol UseStandard Drinks/WeekCommentsYes0 (1 standard drink = 0.6 oz pure alcohol)Caffeine intake: noneAUDIT-CAnswerDate RecordedQ1: How often do you have a drink containing alcohol?Never04/14/2023Q2: How many drinks containing alcohol do you have on a typical day when you are drinking?1 or Q3: How often do you have six or more drinks on one occasion?Tucwkma43/13/2023PHQ-2AnswerDate RecordedPatient Health Questionnaire-2 Awxmg740/18/2024CommentsNoSex and Gender InformationValueDate RecordedSex Assigned at BczkrMycjep17/23/2024 6:56 AM EDTLegal ShkUilnwj51/15/2023 7:36 PM EDTGender IlqwblypAgbvjf09/23/2024 6:56 AM EDTSexual GoxsvsbqklzCmurpgpv38/23/2024 6:57 AM EDT Last Filed Vital Signs Vital SignReadingTime TakenCommentsBlood Wituanhh883/60009/28/2024 8:31 AM EDT Wxeli6643/29/2025 8:31 AM ZMVOmizqerosag53.8 ??C (96.5 ??F)09/28/2024 8:31 AM EDTRespiratory Ckyb823409/28/2024 8:31 AM EDTOxygen Ajekbqljqh70%09/28/2024 8:31 AM EDTInhaled Oxygen Concentration--Gvagbc45.4 kg (153 lb)09/28/2024 8:31 AM EDT Qqmeut620.9 cm (5' 1 )09/28/2024 8:31 AM EDTBody Mass Index28.9109/28/2024 8:31 AM EDT Plan of Treatment DateTypeDepartmentCare Team (Latest Contact Info)Sdbkrgdaecs30/09/2025 2:30 PM ESTConsult [facility] [address] [place] [address] India Whyte, SEXUAL HEALTH PHYSICIAN [address] [place] [address] 10/10/2025 8:30 AM EDTProcedure Visit [facility] [place] [facility] [address] [place] [address] Russ Tolentino DO [address] [place] [address] Health MaintenanceDue DateLast DoneCommentsCT Wopcjextfbdr56/07/1965FIT-DNA 1965FIT1965FOBT09/06/19644851Omjcmuoxxvxxq68/07/1965COVID-19 Vaccine ( season)/, 08/08/2020Influenza Vaccine (#1) /06/2023, 04/04/2020, 03/06/2018, Additional history exists Ronudcxzhdv39/02/202606/07/2015Colorectal Cancer Weuhzacnb08/02/2026Mammogram 609/, 01/26/2024, 01/26/2024, Additional history existsPap Smear 804/, 11/23/2019, 11/23/2019Cervical Cancer Ddfzzgozo58/27/2029 HPV/Hynnsu89/, 08/08/2022, 11/23/2019, Additional history existsPneumococcal Vaccine: Pediatrics (0 to 5 Years) and At-Risk Patients (6 to 64 Years)Aged OutNo longer eligible based on patient's age to complete this topic Procedures Procedure NamePriorityDate/TimeAssociated DiagnosisComments*MAMMOGRAM (BILATERAL), DIAGNOSTIC COMPUTER IXTWDWbvegia69/25/2025 7:03 AM EDTPAP SMEAR Hhhoxal2609/16/2024 12:00 AM EDTTHINPREP IMAGING PAP W/REFL HPV MRNA E6/C4Rhnzjub 08/27/2023 4:09 PM EDT Screening for malignant neoplasm of cervix XUWPOQBNPESNcqqodp68/02/2016 12:00 PM EDT from Last 3 Months or Most Recently Relevant to Health Maintenance Results * *MAMMOGRAM (BILATERAL), DIAGNOSTIC COMPUTER AIDED (02/24/2025 7:03 AM EDT) Anatomical RegionLateralityModalityRadiographic Imaging Narrative Authorizing ProviderResult TypeResult StatusGerri Clark Whyte NPIMG XR PROCEDURES Final Result * Pap Smear (09/16/2024 12:00 AM EDT)Specimen (Source)Anatomical Location / LateralityCollection Method / VolumeCollection TimeReceived TimeSwabCervical swab / Unknown Narrative Authorizing ProviderResult TypeResult StatusFazio Nurse [facility] ObLAB CYTOLOGY ORDERABLESFinal ResultPerforming OrganizationAddressCity/State/ZIP CodePhone Number EXTERNAL LAB * THINPREP IMAGING PAP W/REFL HPV MRNA E6/E7 (08/27/2023 4:09 PM EDT)Component ValueRef RangeTest MethodAnalysis TimePerformed AtPathologist Signature CLINICAL INFORMATIONQUESTComment:None givenLMPQUESTComment:NONE GIVENPREV. PAP QUESTComment:NONE GIVENPREV. BXQUESTComment:NONE GIVENSOURCEQUESTComment:None givenSTATEMENT OF ADEQUACYQUESTComment: Satisfactory for evaluation. Endocervical/transformation zone component present. INTERPRETATION/RESULTQUESTComment: Cytology Results: Negative for intraepithelial lesion or malignancy. COMMENTQUESTComment: This Pap test has been evaluated with computer assisted technology. CYTOTECHNOLOGISTQUESTComment: PE, CT(ASCP) CT screening location: [facility] [place], [address] [place] [address]. (ALWAYS MESSAGE)QUESTComment: EXPLANATORY NOTE: The Pap is a screening test for cervical cancer. It is not a diagnostic test and is subject to false negative and false positive results. It is most reliable when a satisfactory sample, regularly obtained, is submitted with relevant clinical findings and history, and when the Pap result is evaluated along with historic and current clinical information. Specimen (Source)Anatomical Location / LateralityCollection Method / Volume Collection TimeReceived TimeSwabCervical swab / Icwhsnu8908/27/2023 4:09 PM EDT 08/28/2023 3:22 AM EDT Narrative Resulting Agency Comment Performing Organization Information ?Site ID: [id number] ?Name: [facility] ?Address: [address] [place] [address], [address] [place] [phone] ?Director: Konstantin Pelaez MD Authorizing ProviderResult TypeResult StatusKatethel Stuart DOL CYTOLOGY ORDERABLESFinal ResultPerforming OrganizationAddressCity/State/ZIP CodePhone Number [facility] * Colonoscopy (11/02/2015 12:00 PM EDT)Anatomical RegionLateralityModality EndoscopySpecimen (Source)Anatomical Location / LateralityCollection Method / VolumeCollection TimeReceived Time11/02/2015 12:00 PM EDT Narrative 07/04/2016 12:00 PM EST PERFORMED AT [facility] LOCATION:[id number] [facility]per [facility]. Santiago Procedure Note CONVERSION, GENERIC - 10/17/2022 PERFORMED AT [facility] LOCATION:[id number] [facility]per Dr. Santiago Authorizing ProviderResult TypeResult StatusMichaeclark Martinez Eric DOENDOSCOPY PROCEDURE ORDERABLESFinal Result from Last 3 Months or Most Recently Relevant to Health Maintenance Insurance Care Teams Team MemberRelationshipSpecialtyStart DateEnd Date Alonzo Reyes DO [address] [place], [place] [id number] [facility]
--- OUTSIDE RECORDS SUMMARY | 2025-05-03 13:09 | XMS_ITS | CCD ---
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 [address] Tara ZapataCholesterol.total/Cholesterol in HDL [Mass ratio]4.3 {ratio} NormalThe [facility] HospitalComment on above:Performed By: #### LIPID, CMP, TSH #### [facility] [address] [address] [address] Tara Gonzales NORMAL> or = 60 mg/dl - LOW CARDIOVASCULAR RISK <40 mg/dl - HIGH CARDIOVASCULAR RISKNoMorrow County HospitalComment on above:Performed By: #### LIPID, CMP, TSH #### [facility] [address] [address] [address] Tara ZapataLDL CALC NORMALSEE BELOWBarberton Citizens HospitalComment on above:Result Comment: <100 mg/dl OPTIMAL 100 - 129 mg/dl NEAR OR ABOVE OPTIMAL 130 - 159 mg/dl BORDERLINE HIGH 160 - 189 mg/dl HIGH >190 mg/dl VERY HIGH Performed By: #### LIPID, CMP, TSH #### [facility] [address] [address] [address] Tara ZapataTriglyceride [Mass/Vol]69 mg/dLNormal<=150The [facility] Comment on above:Performed By: #### LIPID, CMP, TSH #### [facility] [address] [address] [address] Tara ZapataVLDL CALC13.8 mg/dLNormMercy HospitalComment on above: Performed By: #### LIPID, CMP, TSH #### [facility] [address] [place] [address] Dr. Tara ZapataPROF 14(COMP METB)on 02-01-7105Xowgidh [Mass/Vol]3.7 g/dLNormal 3.4-5.0[facility] CenterComment on above:Performed By: #### LIPID, CMP, TSH #### [facility] [address] [place] [address] Dr. Yilan ChangAlbumin/Globulin [Mass ratio]1.1 {ratio}NormalThe [facility] HospitalComment on above:Performed By: #### LIPID, CMP, TSH #### [facility] [address] [place] [address] Dr. Tara Wilcox [Catalytic activity/Vol]72 U/EXugfwr21-872Dme [facility] HospitalComment on above:Performed By: #### LIPID, CMP, TSH #### [facility] [address] [place] [address] Dr. Tara Zelaya [Catalytic activity/Vol]96 U/LCritically spdx20-34Sck [facility] HospitalComment on above:Performed By: #### LIPID, CMP, TSH #### [facility] [address] [place] [address] Dr. Tara Peter gap [Moles/Vol]11.1 mmol/LNormalThe [facility] Comment on above:Performed By: #### LIPID, CMP, TSH #### [facility] [address] [place] [address] Dr. Tara Sam [Catalytic activity/Vol]23 U/UVnpglv25-15Ttw [facility] HospitalComment on above:Performed By: #### LIPID, CMP, TSH #### [facility] [address] [place] [address] Dr. Tara ZapataBilirubin [Mass/Vol]0.4 mg/dLNormal0.2-1.0The [facility] Comment on above:Performed By: #### LIPID, CMP, TSH #### [facility] [address] [place] [address] Dr. Tara ZapataCalcium [Mass/Vol]9.0 mg/dLNormal8.5-10.1[facility] Comment on above:Performed By: #### LIPID, CMP, TSH #### [facility] [address] [place] [address] Dr. Tara ZapataChloride [Moles/Vol]105 mmol/CRrcddo42-688Jiv [facility] Comment on above:Performed By: #### LIPID, CMP, TSH #### [facility] [address] [place] [address] Dr. Tara ZapataCO2 [Moles/Vol]30.8 mmol/DRhnibn19.0-32.0The [facility] Comment on above:Performed By: #### LIPID, CMP, TSH #### [facility] [address] [address] [address] Tara ZapataCreatinine [Mass/Vol]0.70 mg/dLNormal0.55-1.02[facility] Medical CenterComment on above:Performed By: #### LIPID, CMP, TSH #### [facility] [address] [address] [address] Tara LucasGFR-AF QATARI>60Normal>=60The [facility] HospitalComment on above:Performed By: #### LIPID, CMP, TSH #### [facility] [address] [address] [address] Tara Godoy-NON AF QATARI>60Normal>=60The [facility] HospitalComment on above:Performed By: #### LIPID, CMP, TSH #### [facility] [address] [address] [address] Tara ZapataGlobulin (S) [Mass/Vol]3.5 g/dLNormalThe [facility] HospitalComment on above:Performed By: #### LIPID, CMP, TSH #### [facility] [address] [address] [address] Tara ZapataGlucose [Mass/Vol]103 mg/fENwjevh45-654Kbp [facility] Comment on above:Performed By: #### LIPID, CMP, TSH #### [facility] [address] [address] [address] Tara ZapataPotassium [Moles/Vol]3.9 mmol/LNormal3.5-5.1The [facility] Comment on above:Performed By: #### LIPID, CMP, TSH #### [facility] [address] [address] [address] Tara ZapataProtein [Mass/Vol]7.2 g/dLNormal6.4-8.2The [facility] Comment on above:Performed By: #### LIPID, CMP, TSH #### [facility] [address] [address] [address] Tara Schraderdium [Moles/Vol]143 mmol/PYhtgqn873-654Sdt [facility] Comment on above:Performed By: #### LIPID, CMP, TSH #### [facility] [address] [address] [address] Tara Alonzo nitrogen [Mass/Vol]19.0 mg/dLCritically high7.0-18.0The [facility] HospitalComment on above:Performed By: #### LIPID, CMP, TSH #### [facility] [address] [address] [address] Tara Alonzo nitrogen/Creatinine [Mass ratio]27.1 mg/mgNormalThe [facility] HospitalComment on above:Performed By: #### LIPID, CMP, TSH #### [facility] [address] [place] [address] Dr. Tara Kirkland 58-87-7612GTZ4.792 uIU/mLNormal0.358-3.740The [facility] HospitalComment on above:Performed By: #### LIPID, CMP, TSH #### [facility] [address] [place] [address] Dr. Tara Escobar (CLEAN/CATCH) TANGLED YARN SPOOL STRAIGHTENER/MICRO IF IND.on [id number] Ql (U) NegativeNormalNEGATIVEThe [facility] HospitalComment on above:Performed By: #### DEJUAN UMICRO #### [facility] [address] [place] [address] Dr. Tara Barron (U)CLEARNormalCLEARThe [facility] HospitalComment on above: Performed By: #### DEJUAN UMICRO #### [facility] [address] [place] [address] Dr. Tara Arevalo (U)LT. YELLOWNormalYELLOWThe [facility] HospitalComment on above:Performed By: #### DEJUAN UMICRO #### [facility] [address] [place] [address] Dr. Tara ZapataGlucose Ql (U)NegativeNormalNEGATIVEMetrohealth Main Campus Medical CenterComment on above:Performed By: #### UACSKYRA UMICRO #### [facility] [address] [address] [address] Tara ZapataHemoglobin Ql (U)NegativeNormalNEGATIVEMetrohealth Main Campus Medical Center Comment on above:Performed By: #### UACSKYRA, UMICRO #### [facility] [address] [address] [address] Tara ZapataKetones Ql (U)NegativeNormalNEGATIVEMetrohealth Main Campus Medical CenterComment on above:Performed By: #### MASONCSKYRA UMICRO #### [facility] [address] [address] [address] Tara ZapaatLEUKOCYTESSMALLAbnormalNEGATIVEMetrohealth Main Campus Medical CenterComment on above:Performed By: #### DEJUAN UMICRO #### [facility] [address] [place] [address] Dr. Tara ZapataNitrite Ql (U)NegativeNormalNEGATIVEMetrohealth Main Campus Medical CenterComment on above:Performed By: #### DEJUAN UMICRO #### [facility] [address] [place] [address] Dr. Tara ZapatapH (U)6.0 [pH]Normal5-9[facility] CenterComment on above: Performed By: #### DEJUAN UMICRO #### [facility] [address] [place] [address] Dr. Tara ZapataSPEC GRAVITY1.165Fvasyz9.005-<=1.025The [facility] HospitalComment on above:Performed By: #### MASONCSKYRA UMICRO #### [facility] [address] [place] [address] Dr. Tara ZapataUA PROTEINNegativeNormalNEGATIVE/ TRACEMetrohealth Main Campus Medical Center Comment on above:Performed By: #### UACSKYRA, UMICRO #### [facility] [address] [address] [address] Tara Herrera MICRO INDINDICATEDBarberton Citizens HospitalComment on above: Performed By: #### DEJUAN UMICRO #### [facility] [address] [address] [address] Tara Martins Qn (U)0.2 {Ritika'U}/dLNormal0.2 - 1.0The [facility] HospitalComment on above:Performed By: #### DEJUAN UMICRO #### [facility] [address] [address] [address] Tara Nguyen MICROSCOPIC ONLYon [id number] SEENNormalNONE SEENMetrohealth [facility] Campus Medical CenterCommemorial healthcare on above:Performed By: #### NATHANIEL ZAIDIICRO #### [facility] [address] [place] [address] Dr. Tara Etienne identified Cx Nom (U)NOT INDICATEDNoMorrow County HospitalCommemorial healthcare on above:Performed By: #### NATHANIEL ZAIDIICRO #### [facility] [address] [place] [address] Dr. Tara Hale SEENNormalNONE SEENMetrohealth [facility] Campus Medical CenterCommemorial healthcare on above:Performed By: #### NATHANIEL ZAIDIICRO #### [facility] [address] [place] [address] Dr. Tara Acuña LM Nom (Urine sed)NONE SEENNormalNONE SEENMetrohealth Main Campus Medical CenterCommemorial healthcare on above:Performed By: #### NATHANIEL ZAIDIICRO #### [facility] [address] [place] [address] Dr. Tara Crowleythelial cells LM Ql (Urine sed)RARENormalNONE SEEN /RAREThe [facility] HospitalCommemorial healthcare on above:Performed By: #### DEJUAN UMICRO #### [facility] [address] [place] [address] Dr. Tara Ceballos SEENNormalNONE SEENMetrohealth [facility] Campus Medical CenterCommemorial healthcare on above:Performed By: #### DEJUAN UMICRO #### [facility] [address] [address] [address] Tara ZapataUfygrOUD6-1Orlqcp0-5Rhr [facility] HospitalComment on above:Performed By: #### CATARINO ZAIDI #### [facility] [address] [address] [address] Tara ZapataWBC0-2AbnormalNONE SEENMetrohealth Main Campus Medical CenterComment on above: Performed By: #### CATARINO ZAIDI #### [facility] [address] [address] [address] Tara ZapataVITAMIN D 25 OHon [id number] D 25-OH88.0 ng/mLNBarnesville HospitalComment on above:Performed By: #### VITAD #### [facility] [address] [place] [address] Dr. Tara Beckett RANGESSEE BELOWBarberton Citizens HospitalComment on above: Result Comment: <20 ng/mL Vit D deficient 20 - <30 ng/mL Vit D insufficient 30 - 100 ng/mL Vit D sufficient >100 ng/mL Potential ToxicityPerformed By: #### VITAD #### [facility] [address] [place] [address] Dr. Tara Acevedo Cytology Reporton [id number] Cytology ReportClinical Information Specimen Collection Date: 05/21/2021 LMP: NA Type of specimen: Cervical/endocervical MENSES: Post-menopausal. HPV testing is being performed at [facility] and will be reported out in [...] and to continue having regular PAP smears inthe future. GY Disclaimer [employer] Environmental Technician Disclaimer ANATOMICPATHOLOGYNormMiddletown HospitalComment on above:Performed By: #### GYNCYTREP #### [facility] (DEFAULT) [address] [place], [place] [address]YJY DNAon [id number] DNA ScrnNegativeNormalNegativeSamaritan North Health CenterComment on above:Result Comment: The APTIMA HPV Assay is an [...] of infection, and the presence of interfering substances.Performed By: #### [id number] #### [facility] [address] [place], [place] [address]Wnavvxrbbx Office/Clinic Noteon [id number] Office/Clinic NoteChief Complaint New pt. Establishing care, Annual Exam, Previous [facility] pt. History of Present Illness Pelvic Pain: [...] Mirena was taken out two years ago. Nocurrent partner, he . Believes uterus or bladder has dropped, feels a bulge. Last pap: Has every year. Unsure of date. Denies abnormal since her LEEP. Last mammogram: Done at [place] and [place]. unsure of dates. LEEP: done in 2017 [...] deliveries and had an 8 # baby. Pt.exercises 5 x per week. Review of Systems [...] of records is signed to obtain past [employer] records. Ordered: [id number] [facility] New Preventative Visit 40-64 years Pathology Pap [...] reviewed the patient?s medication list for medication interactions/contraindications and/or for upcoming procedures: [yes or no] Time Spent with the Patient I have personally spent [] minutes on this date, directly related to today's patient visit, including pre and post visit work, for th (more content not included)...[facility] SystemXR HIPS WITH PELVIS BILATERALon [id number] HIPS WITH PELVIS BILATERALEXAM: XR HIPS WITH PELVIS BILATERAL HISTORY: The [...] maintained. IMPRESSION: Radiographically negative hips and bony pelvis.NormalAv[facility] IMPRESSION: Radiographically negative hips and bony pelvis.[facility] EXAM: XR HIPS WITH PELVIS BILATERAL HISTORY: The patient is a 54-year-old female with bilateral hippain since fall one week ago. COMPARISON: None. FINDINGS: I do not identify any displaced fracturesof either proximal femur or elsewhere throughout the bony pelvis. The widths and alignment of both hip joints are maintained. Both sacroiliac joints are maintained. The pubic symphysis is maintained.[facility]ruder HospitalUser, Interfaces - 05/17/2020 9:21 PM EST EXAM: [...] IMPRESSION: Radiographically negative hips and bony pelvis. [facility] HospitalXR SPINE LUMBOSACRAL AP AND LATERALon [id number] SPINE LUMBOSACRAL AP AND LATERALLUMBAR SPINE, 3 VIEWS, Date: 05/15/2020. EXAM: XR [...] dislocation. 2. Mild levoscoliosis of the lumbar spine.[place] IMPRESSION: 1. No evidence for acute fracture or dislocation. 2. Mild levoscoliosis of the lumbar spine.[facility]uder HospitalLUMBAR SPINE, 3 VIEWS, Date: 05/15/2020. EXAM: XR SPINE LUMBOSACRAL AP AND LATERAL HISTORY: Fall, in itial encounter COMPARISON: None. TECHNIQUE: AP and lateral radiographs of the lumbar spine, with aconed-down projection at the lumbosacral junction, were obtained. FINDINGS: There is mild left convex curvature. The lumbar vertebral bodies are anatomically aligned. Vertebral body heights are maintained. There is no evidence for an acute fracture, subluxation, or dislocation.[employer] - 05/15/2020 9:43 PM EST LUMBAR SPINE, [...] 2. Mild levoscoliosis of the lumbar spine. [employer] [facility] HospitalXR SPINE THORACIC 2 VIEWSon [id number] SPINE THORACIC 2 VIEWSDate: 05/15/2020. EXAM: XR SPINE THORACIC 2 VIEWS [...] Mild multilevel degenerative disc. 4. Mild thoracic spondylosis.[place]ervilleIMPRESSION: 1. No evidence for acute fracture or dislocation. 2. Mild dextroscoliosis of the thoracic spine. 3. Mild multilevel degenerative disc. 4. Mild thoracic spondylosis.[facility] Term HospitalWejo [facility] HospitalDate: 05/15/2020. EXAM: XR SPINE THORACIC 2 VIEWS [...] evidence for an acute fracture, subluxation, or dislocation.[employer] - 05/15/2020 9:56 PM EST Date: 05/15/2020. [...] multilevel degenerative disc. 4. Mild thoracic spondylosis. [facility] CORONAVIRUSon [id number] [place] FvhfgrcyFXYQ-WHW-4ODSXHNGPWrnpbjtxIEM TriHealthComment on above:Result Comment: ENHANCED CONTACT, AND DROPLET ISOLATION IS REQUIRED FOR INPATIENTS WITH SARS-CoV-2. CALLED TO AND READ BACK BY NICHOL RAZO ON 04.07.2020 AT 1503 BY JEANETTE IRWIN Vital Signs Date TimeVital SignValuePerforming UsjquffhmNrhmbemo31-15-5287 08:31-0400Body bjkjoh147.9 cmIndia Smith DIESEL MACHINIST Work Phone: [phone] Medical CenterQtvexfriii69-53-0891 08:31-0400Body mass index (BMI) [Ratio]28.91 kg/q7Vifrg Saundrae DIESEL MACHINIST Work Phone: [phone] HospitalFyzpjoenwl38-31-0063 08:31-0400Body temperature 96.49 [degF]India Smith DIESEL MACHINIST Work Phone: [phone] HospitalTnllkalxmy44-00-6359 08:31-0400Body uurwpe95.4 kg India Arguelloe DIESEL MACHINIST Work Phone: [phone] HospitalYpiyidnytb75-28-6183 08:31-0400Diastolic blood ljoaqawf61 mm[Hg]India Arguelloe DIESEL MACHINIST Work Phone: [facility] HospitalPfnbrbrhlg85-92-3217 08:31-0400Heart rate80 /min India Arguelloe DIESEL MACHINIST Work Phone: [phone] HospitalOyadwcnpzu93-69-9761 08:31-0400Respiratory rate18 /minIndia Smith DIESEL MACHINIST Work Phone: [facility] HospitalCqwollsluo06-39-1629 08:31-2014PqH6% (BldA) [Mass fraction]97 %India Smith DIESEL MACHINIST Work Phone: [facility] HospitalMqfebalvzr39-88-9621 08:31-0400Systolic blood vrjkgafs066 mm[Hg]India Smith DIESEL MACHINIST Work Phone: [facility] HospitalRxqhkkymsi73-79-7449 13:23-0400Body mass index (BMI) [Ratio]28.72 kg/e3Muevnpso Rinkes DO Work Phone: [facility] HospitalRtemlkriey91-03-3699 13:23-0400Body axqdav83.95 kgKatethel Arguellokes DO Work Phone: [facility] HospitalZmyfhruxpf44-87-1280 13:23-0400Diastolic blood hcuxgjyy31 mm[Hg]Reyna Arguellokes DO Work Phone: [facility] HospitalJfukxzzizo41-20-3579 13:23-0400Systolic blood utrtdxbe178 mm[Hg]Reyna Arguellokes DO Work Phone: [facility] HospitalZmphiopbik22-71-2088 15:01-0500Body .9 cmMalcolm Melton DIESEL MACHINIST Work Phone: [facility] HospitalRrmmpugola53-03-4873 15:01-0500Body mass index (BMI) [Ratio]28.72 kg/g3JmycmuMalcolm Melton DIESEL MACHINIST Work Phone: [facility] HospitalDlbncsqnij44-09-1475 15:01-0500Body temperature 97.11 [degF]Malcolm Melton DIESEL MACHINIST Work Phone: [facility] HospitalMfjsfxkphq63-60-7033 15:01-0500Body ddcpov36.95 kgMalcolm Melton DIESEL MACHINIST Work Phone: [facility] HospitalQbqdrwygmg34-22-8169 15:01-0500Diastolic blood umforlvw92 mm[Hg]Malcolm Melton DIESEL MACHINIST Work Phone: [facility] HospitalWjahqgbkkl09-85-8395 15:01-0500Heart rate71 /min Malcolm Melton DIESEL MACHINIST Work Phone: [phone] [place], [place] 3522301-27-2025 15:01-2118MgX7% (BldA) [Mass fraction]98 %Malcolm Melton DIESEL MACHINIST Work Phone: [phone] [place], [place] 3522301-27-2025 15:01-0500Systolic blood hahtiutc270 mm[Hg]Malcolm Melton DIESEL MACHINIST Work Phone: [phone] [place], [place] 3522301-15-2025 11:31-0500Body eeuwyl067.9 cmMalcolm Melton DIESEL MACHINIST Work Phone: [phone])[address] [place], [place] 3522301-15-2025 11:31-0500Body mass index (BMI) [Ratio]28.34 kg/f2WcycxzMalcolm Melton DIESEL MACHINIST Work Phone: [phone])[address] [place], [place] 3522301-15-2025 11:31-0500Body voittr60.04 kgMalcolm Melton DIESEL MACHINIST Work Phone: [phone])[address] [place], [place] 3522301-15-2025 11:31-0500Diastolic blood vpueinwy37 mm[Hg]Malcolm Melton DIESEL MACHINIST Work Phone: [phone])[address] [place], [place] 3522301-15-2025 11:31-0500Heart rate78 /min Malcolm Melton DIESEL MACHINIST Work Phone: [phone])[address] [place], [place] 3522301-15-2025 11:31-8377VlZ5% (BldA) [Mass fraction]98 %Malcolm Melton DIESEL MACHINIST Work Phone: [phone])[address] [place], [place] 3522301-15-2025 11:31-0500Systolic blood ekshetjb026 mm[Hg]Malcolm Melton DIESEL MACHINIST Work Phone: [phone] [place], [place] 3522312-18-2024 11:00-0500Body bzotkq768.9 cmMartinwendie Arguelloe DIESEL MACHINIST Work Phone: [phone] [place], [place] 3522312-18-2024 11:00-0500Body mass index (BMI) [Ratio]28.12 kg/x8Bzwjg Rine DIESEL MACHINIST Work Phone: [phone])[address] [place], [place] 3522312-18-2024 11:00-0500Body temperature 97.59 [degF]India Rine DIESEL MACHINIST Work Phone: [phone] [place] [address]-18-2024 11:00-0500Body octghn09.5 kg India Rine DIESEL MACHINIST Work Phone: [phone])[facility] [place] [address]-18-2024 11:00-0500Diastolic blood mm[Hg]India Rine DIESEL MACHINIST Work Phone: [phone])[address] [place] [address]-18-2024 11:00-0500Heart rate74 /min India Rine DIESEL MACHINIST Work Phone: [phone] [place] [address]-18-2024 11:00-0500Respiratory rate18 /minGerri Rine DIESEL MACHINIST Work Phone: [phone])[facility] [place] [address]-18-2024 11:00-9654QcG7% (BldA) [Mass fraction]97 %India Rine DIESEL MACHINIST Work Phone: [phone])[address] [place] [address]-18-2024 11:00-0500Systolic blood xoasnfyx437 mm[Hg]India Rine DIESEL MACHINIST Work Phone: [phone])[address] [place] [address]-12-2024 13:43-0500Body ketbos336.9 cmMalcolm Melton DIESEL MACHINIST Work Phone: [phone])[facility] [place] [address]-12-2024 13:43-0500Body mass index (BMI) [Ratio]27.78 kg/b3Urwszmmisael Melton DIESEL MACHINIST Work Phone: 1(568)[facility] [place] [address]-12-2024 13:43-0500Body qaumas58.68 kgMalcolm Melton DIESEL MACHINIST Work Phone: 1(461)[facility] [place] [address]-12-2024 13:43-0500Diastolic blood neleengt78 mm[Hg]Malcolm Melton DIESEL MACHINIST Work Phone: 1([phone] [place] [address]-12-2024 13:43-0500Heart rate77 /min Malcolm Melton DIESEL MACHINIST Work Phone: 1(188)[facility] [place] [address]-12-2024 13:43-2372YxJ3% (BldA) [Mass fraction]98 %Malcolm Melton DIESEL MACHINIST Work Phone: [phone] [place] [address]-12-2024 13:43-0500Systolic blood mm[Hg]Malcolm Melton DIESEL MACHINIST Work Phone: [facility] HospitalLogpmtrfvw30-63-7599 11:05-0400Body exctye074.9 cmMalcolm Elijah DIESEL MACHINIST Work Phone: [place] [phone] 11:05-0400Body mass index (BMI) [Ratio]27.21 kg/x6Qoxjuimisael Melton DIESEL MACHINIST Work Phone: [facility] HospitalWapfevekoa25-36-6042 11:05-0400Body temperature 97.39 [degF]Malcolm Elijah DIESEL MACHINIST Work Phone: [place] [phone] 11:05-0400Body fttpvo79.32 kgMalcolm Elijah DIESEL MACHINIST Work Phone: [place] [phone] 11:05-0400Diastolic blood smruwsod72 mm[Hg]Malcolm Melton DIESEL MACHINIST Work Phone: [facility] HospitalNicwtaahfd68-97-6717 11:05-0400Heart rate64 /min Malcolmmisael Melton DIESEL MACHINIST Work Phone: [place] [phone] 11:05-8715DiH3% (BldA) [Mass fraction]97 %Malcolmmisael Melton DIESEL MACHINIST Work Phone: [place] [phone] 11:05-0400Systolic blood rnswujik305 mm[Hg]Malcolm Melton DIESEL MACHINIST Work Phone: noMT [facility] Encounters Encounter DateEncounter TypeCare ProviderFacilityStart: 03-16-2025 End: 67-70-1480Enltdw flowsheetCorey Rajan DO Work Phone: [facility] [place] [facility]BGYNStart: 03-16-2025 End: 15-02-9073Rvlzfq flowsheetCorey Rajan DO Work Phone: [facility] [place] OBGYNStart: 03-16-2025 End: 62-42-3299Fndbmi outpatient visit 15 minutesCorey Rajan DO Work Phone: [facility] [place] OBGYNComment on above:Uterine prolapse; Female cystocele; Insulin resistanceStart: 03-16-2025 End: 52-07-3227plxqdplyvlNRQJR FAZIONot AvailableStart: 09-28-2024 End: 57-48-6374Mmesif flowsheetGerri L Saundrae DIESEL MACHINIST Work Phone: [facility] TSR FMStart: 09-28-2024 End: 69-29-2727Pnllie flowsheetGerri L Saundrae DIESEL MACHINIST Work Phone: [facility] TSR FMStart: 09-28-2024 End: 31-28-2434Nhvwcp outpatient visit 15 minutesGerri L Saundrae DIESEL MACHINIST Work Phone: noms TSR FMComment on above:Vertigo (Primary Dx); Encounter for screening mammogram for breast cancerStart: 09-28-2024 End: 51-34-5025nhsxhsjwpqAIPSC L RINENot AvailableStart: 09-22-2024 End: 26-71-7797Lyzvccmeu encounterGerri L Saundrae DIESEL MACHINIST Work Phone: [facility] TSR FMStart: 09-16-2024 End: 07-35-2562Wusoyp flowsheetKathleen E Rinkes DO Work Phone: [facility] OBStart: 09-16-2024 End: 16-34-6058Aoloob flowsheetKathleen E Rinkes DO Work Phone: [facility] OBStart: 09-16-2024 End: 18-70-3200Deeqwgn encounter statusKathleen E Rinkes DO Work Phone: [facility] Work Phone: start: 09-16-2024 End: 71-48-8189Ayhcvpjz preventive med est patient 40-64yrsKathleen E Rinkes DO Work Phone: [facility] OBComment on above:Encounter for gynecological examination without abnormal finding (Primary Dx); Screening for malignant neoplasm of cervix; Encounter for screening mammogram for breast cancer; Cystocele, midline; Uterine prolapseStart: 09-16-2024 End: 23-81-6742cjpwhdtojwCNKQNFDN E RINKESNot AvailableStart: 08-18-2024 End: 28-54-5483ccjtoxmbjlRHYAU L RINENot AvailableStart: 06-28-2024 End: 62-08-6572Ugbebh outpatient visit 15 minutesMalcolm Melton DIESEL MACHINIST Work Phone: n[facility] TSR FMComment on above:Dizziness (Primary Dx) Start: 06-28-2024 End: 16-02-1150wdwkenxfpsMLWYZNTiffanie Moody AvailableStart: 06-16-2024 End: 09-45-5975Surqkr Aisha Melton DIESEL MACHINIST Work Phone: NONZ TSR FMStart: 06-16-2024 End: 12-80-5985Etauwm Aisha Melton DIESEL MACHINIST Work Phone: [facility] TSR FMStart: 06-16-2024 End: 42-09-8751Vcfxhu outpatient visit 15 minutesMalcolm Melton DIESEL MACHINIST Work Phone: NOTC TSR FMComment on above:Acute non-recurrent frontal sinusitis (Primary Dx)Start: 06-16-2024 End: 07-54-9004lwtkekcddyUXZCKATiffanie Moody AvailableStart: 05-19-2024 End: 58-96-8867Rdvuyz flowsheetGerri L Rine DIESEL MACHINIST Work Phone: n[facility] TSR FMStart: 05-19-2024 End: 68-74-4687Kalzqn flowsheetGerri L Rine DIESEL MACHINIST Work Phone: NOHM TSR FMStart: 05-19-2024 End: 00-55-4643Nqxgpjvmw Result EncounterGerri L Rine DIESEL MACHINIST Work Phone: n[facility] External Department UnsolicitedStart: 05-19-2024 End: 72-09-7993Cqlydyg encounter statusGerri L Saundrae DIESEL MACHINIST Work Phone: [facility] Work Phone: Start: 05-19-2024 End: 55-21-2448Ouojxvzk preventive med est patient 65yrs& olderIndia Smith DIESEL MACHINIST Work Phone: [facility] TSR FMComment on above:Wellness examination (Primary Dx); Dyslipidemia (CMS/HCC); Unspecified inflammatory [...] Hepatic cyst; MVA (motor vehicle accident), subsequent encounterStart: 05-19-2024 End: 57-67-1699Nfjmkk OnlyIndia Smith DIESEL MACHINIST Work Phone: n[facility] TSR FMComment on above:Dyslipidemia (CMS/HCC) (Primary Dx)Start: 05-13-2024 End: 13-91-5808Wluauv outpatient visit 25 minutesMalcolm Melton DIESEL MACHINIST Work Phone: noMS TSR FMComment on above:Myalgia (Primary Dx); Seasonal allergic reaction; Motor vehicle accident, initial encounterStart: 05-13-2024 End: 80-24-8383azopgefcojQYACBD D HENDERSONNot AvailableStart: 02-24-2024 End: 74-55-0252DvudntNrpcnu E Fruth DIESEL MACHINIST Work Phone: noms TSR FMComment on above:Seasonal allergic reaction Start: 02-05-2024 End: 58-61-1338Jjxsfr Aisha Melton DIESEL MACHINIST Work Phone: n[facility] TSR FMStart: 02-05-2024 End: 77-80-8944Ltxtsy Aisha Melton DIESEL MACHINIST Work Phone: n[facility] TSR FMStart: 02-05-2024 End: 68-56-8970Vdtdzf outpatient visit 25 minutesMalcolm Melton DIESEL MACHINIST Work Phone: n[facility] TSR FMComment on above:Acute non-recurrent maxillary sinusitis (Primary Dx); Acute cough; Elevated liver enzymes; Uterine prolapseStart: 02-03-2024 End: 20-70-0634Utnmgteti encounterGerri Syed Smith DIESEL MACHINIST Work Phone: n[facility] TSR FMStart: 01-28-2024 End: 77-97-3591Lnuyhlmcz Result EncounterGerri L Saundrae DIESEL MACHINIST Work Phone: noms External Department UnsolicitedStart: 01-28-2024 End: 63-57-5031Vsenjvuve Result EncounterGerri Syed Arguelloe DIESEL MACHINIST Work Phone: noms External Department UnsolicitedStart: 12-03-2023 End: 09-68-5762aleeojrdmsNG Lee Lo Work Phone: [facility] Work Phone: Start: 12-03-2023 End: 85-30-2131Xpbrzcdmnh RecurringDO Lee Lo Work Phone: [facility] Therapy Start: 53-08-0097eqmosivpswEW DOCTOR MISCFacility:N4Aqvac: 08-05-2022 End: 85-38-1224esimsgbzueUVTODHI G SCHERERMercy Tiffin HospitalStart: 06-17-2022 End: 60-08-5758ssphnnuwlhXXKSGTMX E RINKESMercy [place] HospitalStart: 06-17-2022 End: 92-04-3177Jyoyrjjtrr hospital visit by physicianNeeru CRUZ Physical TherapyComment on above:ArrivedStart: 05-20-2022 End: 70-06-3271pbjdprcjeeBOGLIJAJNydia Neil HospitalStart: 05-20-2022 End: 97-43-0780Uyeevhkakk hospital visit by physicianNeeru CRUZ Physical TherapyComment on above:ArrivedStart: 05-09-2022 End: 23-63-3551zwztifebraVofdp WestFacility:H7Inugo: 20-80-0937Pjxvkjxdy for general adult medical examination without abnormal findingsRACHEL FRUThe [place] HospitalStart: 03-12-2022 End: 94-54-1248nxdluklkmsIDLTNV FRUTHFacility:P5Jnpbo: 03-12-2022 End: 69-31-0146Xwfhwzqqf for general adult medical examination without abnormal findingsRACHEL FRUTHFacility:H4Wousn: 05-17-2020 End: 14-23-6377Bnxgttffuh hospital visit by Tirso Lo Work Phone: [facility] RadiologyComment on above: ArrivedStart: 05-15-2020 End: 15-77-9082Vzwfbsyasq hospital visit by Tirso Lo Work Phone: [facility] RadiologyComment on above: ArrivedStart: 11-23-2019 End: 37-74-5108Lxwpvzsmgm hospital visit by Tirso Brown LaboratoryComment on above:Screening for cervical cancerStart: 09-17-2018 End: 19-96-2678Obzqluu encounter procedureHistorical ProviderAv[facility] [place] Registration Procedures DateProcedureProcedure DetailPerforming ClinicianStart: 36-20-1756Meajcoyhyra Russ [employer] Work Phone: Start: 64-68-0461Ehifcerujhk observation [Identifier] in Cervix by Cyto stainCorey [employer] Work Phone: Start: 79-15-5123WWW CBC WITH AUTO DIFFGerri L Rine DIESEL MACHINIST Work Phone: Start: 27-53-5360EYLF-CoV-2 (COVID-19) Ab panel - Serum, Plasma or Blood by Rapid immunoassayMalcolm Melton DIESEL MACHINIST Work Phone: Start: 26-77-7718PZV CBC WITH AUTO DIFFGerri L Rine DIESEL MACHINIST Work Phone: Start: 31-22-2848MzdyctvqssuMdebf Rine DIESEL MACHINIST Work Phone: Start: 05-92-0651Gppxvlriwao of hipMichael G Eric Work Phone: Start: 04-49-3066Q-ray of lumbosacral spineMichael G Eric Work Phone: Start: 62-70-1960Gdokwmkpsmt of thoracic spineMichael Michlele Eric Work Phone: Start: 68-61-6997Yjuxnfoiyto observation [Identifier] in Cervix by Cyto stainNeeru Sherman PTStart: 72-74-1763YKCL (OUTSIDE) Historical ProviderStart: 01-19-8729Eepiw 1996 panel - Serum or PlasmaHistorical ProviderStart: 66-88-1022CbfizlorsqrXjgh Schneider PT Plan of Treatment DateCare ActivityDetailAuthorStart: 90-67-3838Addunafui for malignant neoplasm of cervixNOMS HealthcareStart: 87-76-6331Dvcadxdqo for malignant neoplasm of cervixPap SmearNOMS HealthcareStart: 99-83-9413Qsrqgmkye for malignant neoplasm of breastMammogramNOMS HealthcareStart: 35-66-6968Ziwyjjbrk for malignant neoplasm of colonBON ADVENTIST HE[facility] ST. HELE[facility] HEALTHStart: 10-10-2025 End: 29-96-2038Pwnjgtw encounter yndbssaic75/11/2026 8:30 AM EDT Procedure Visit NOMR[facility] PERDOMON [address] [phone] Russ Tolentino DO [address] [place] [address] NOMRosi [place] OBGYNStart: 09-22-2025 End: 39-34-0354Wtbsbji encounter procedureNOMS [facility] OBStart: 03-16-2025 End: 73-25-2089Mjajaox encounter pyhswiyed26/15/2025 1:10 PM EDT Office Visit ANGELINA HERNÁNDEZ [address] [place] [phone] Russ Tolentino, [address] [place], [place] [id number] ArrivedNOMS [place] OBGYNComment on above:ArrivedStart: 60-22-8495Qxcfergrp vaccinationInfluenza Vaccine (#1)[facility] HealthcareStart: 63-18-6933Libwdiptg for malignant neoplasm of breastMammogram NOM HealthcareStart: 28-59-4443Zpnlscffw for malignant neoplasm of cervixBON [facility]ABIL[facility]ATIONStart: 09-28-2024 End: 04-59-6120Ghxxilu encounter hlguvliju26/29/2025 8:30 AM EDT Office Visit [facility] [address] [place] [address] India Smith, YOVANI [address] [place], [place] [id number] Encounter for screening mammogram for breast cancerNOMS KIERAR Comment on above:Encounter for screening mammogram for breast cancerStart: 09-16-2024 End: 56-87-2286KWP Breast - bilateral screeningBilateral screening mammogram with tomosynthesis Imaging Routine Encounter for screening mammogram for breast cancer Expected: 09/16/2024, Expires: 11/16/2025NOMT HealthcareComment on above: Expected: 09/16/2024, Expires: 11/16/2025Start: 09-16-2024 End: 63-58-1450Mkyriac encounter procedureNOMS SWS OBComment on above:Encounter for gynecological examination without abnormal finding; Screening for malignant neoplasm of cervix; Encounter for screening mammogram for breast cancerStart: 08-18-2024 End: 30-32-1149Ropkqsb encounter euzsqsfpn37/19/2025 10:30 AM EDT Office [facility] [address] [place] [address] India Smith, YOVANI [address] [place], [place] [id number] [facility] KIERA FMStart: 08-17-2024 End: 78-41-8766Dkpfsdw aminotransferase [Enzymatic activity/volume] in Serum or PlasmaALT Lab Today Dyslipidemia (CMS/HCC) Expected: 08/17/2024 (Approximate), Expires: 05/19/2025[facility] Work Phone: Comment on above:Expected: 08/17/2024 (Approximate), Expires: 05/19/2025Start: 08-17-2024 End: 91-50-8606Aiyennzhl aminotransferase [Enzymatic activity/volume] in Serum or PlasmaAST Lab Today Dyslipidemia (CMS/HCC) Expected: 08/17/2024 (Approximate), Expires: 05/19/2025NOMS HealthcareComment on above:Expected: 08/17/2024 (Approximate), Expires: 05/19/2025Start: 08-17-2024 End: 21-27-7895Qvhfa 1996 panel - Serum or PlasmaLipid panel Lab Today Dyslipidemia (CMS/HCC) Expected: 08/17/2024 (Approximate), Expires: 05/19/2025 NOMS HealthcareComment on above:Expected: 08/17/2024 (Approximate), Expires: 05/19/2025Start: 06-16-2024 End: 47-47-3962Oleszgx encounter foczasbvh80/15/2025 11:30 AM EST Office Visit [facility] [address] [place] [phone] Malcolm Melton, DIESEL MACHINIST [address] [place] [address] ArrivedNOMS TSR FMComment on above:ArrivedStart: 05-19-2024 End: 56-62-9673Hszcjbt encounter procedureNOMS TSR FMComment on above:Wellness examination (Primary Dx); Dyslipidemia (CMS/HCC); Unspecified inflammatory spondylopathy, lumbosacral region (CMS/HCC); Vitamin D deficiency; Environmental and seasonal allergiesStart: 05-11-2024 End: 23-43-6006Dawextl encounter qpodeghmj78/10/2024 7:00 AM EST Office Visit [facility] [address] [place] [address] India Smith, DIESEL MACHINIST [address] [place], [place] [id number] N[facility] TSR FMStart: 02-05-2024 End: 26-81-9514Gptjokv encounter rbicbbebb49/05/2024 11:00 AM EDT Office Visit [facility] [address] [place] [phone] Malcolm Melton, DIESEL MACHINIST [address] [place] [address] ArrivedFRANCISCAN HEALTHR FMComment on above:ArrivedStart: 02-04-2024 End: 96-24-0283Dobldjo encounter ipdykhpgh49/04/2024 2:15 PM EDT Office Visit [facility] [address] [place] [address] Reyna Stuart DO [address] [place] [address] [facility] OBStart: 02-03-2024 End: 06-24-5572Ostgzupxtmdsz metabolic 2000 panel - Serum or PlasmaComprehensive metabolic panel Lab Routine Elevated liver enzymes Expected: 02/03/2024 (Approximate), Expires: 02/02/2025[facility] Work Phone: Comment on above:Expected: 02/03/2024 (Approximate), Expires: 02/02/2025Start: 77-42-4026Pdoddqabv vaccinationInfluenza Vaccine (#1) [facility] HealthcareStart: 29-39-4035Nsgqadq lipid profileLIPID SCREENINGWVUMEDICINE HARR[facility] Start: 57-88-3545CChV/Tdap/Td vaccine (2 - Td or Tdap)DTaP/Tdap/Td vaccine (2 - Td or Tdap)[facility]ATIONStart: 22-45-9669Gmtqorqfk for malignant neoplasm of cervixPap smearBON [facility] REHABIL[facility]ATIONStart: 08-05-2022 End: 70-55-1481Ydbtynp encounter aiarmfwwi42/06/2023 Appointment Physical Therapy Neeru Sherman PTMTHZ Physical TherapyStart: 06-17-2022 End: 64-41-6250Arvuqeu encounter yjqhwkeco79/16/2023 Appointment Physical Therapy Neeru Sherman PTMTHZ Physical TherapyStart: 36-18-0588Bsfiolqyw vaccinationFlu vaccine (#1)[facility]: 11-27-2020 End: 06-94-8378Wzqsxu Visit11/27/2020 Office Visit Obstetrics and Gynecology Wendy Moser, METER REPAIRER HELPER - CN [address] [place] [address] [phone] [facility] OBSTETRICS & GYNECOLOGYStart: 19-04-2921Ywijybuk Vaccine (1 of 2)Shingles Vaccine (1 of 2) [place], [place]Comment on [place]:Postponed from 2014 (Unavailable) Start: 74-29-1477HDWVT-19 Vaccine (3 - Booster for Moderna series)COVID-19 Vaccine (3 - Booster for Moderna series)[facility]: 21-18-4254Yzoic panelBON [facility]: 86-48-6491Mxwsmmknl vaccinationFlu vaccine (Season Ended)[place], [place]Start: 12-14-2019 DTaP/Tdap/Td vaccine (1 - Tdap)DTaP/Tdap/Td vaccine (1 - Tdap)[place], [facility]Commem[facility] healthcare on above:Postponed from 09/07/1983 (Not Indicated)Start: 10-01-2017 Screening for malignant neoplasm of colonColon cancer screen colonoscopyD[place], KYSt[place]: 90-33-9707Qqsxnzgyg for malignant neoplasm of cervix Cervical cancer [facility]: 63-82-3012Rnhorbuir for malignant neoplasm of breastBreast cancer [facility]: 67-66-9130BigpnzdbmxwKOGRCCKPDL CANCER SCREENING [facility] Start: 62-11-3484Ggededa mass concCOLON CANCER SCREENING [facility] Start: 56-66-1187Prohvanc vaccine (1 of 2)Shingles vaccine (1 of 2)[facility]art: 92-35-8016Tmkvay vaccine hzv live for subcutaneous useZOSTER (SHINGLES) VACCINE (1 of 2)[facility] HOSPITALStart: 23-81-4351Sqzcyingy for malignant neoplasm of colonBON [facility]carawas Hospitalart: 15-80-9022Mlsqmsc mass conc MAMMOGRAM SCREENING DISCUSSIONMercy Health West Hospitalart: 56-86-3548Vvwmfgmoq mammography MAMMOGRAM SCREENING DISCUSSIONRiverside Methodist Hospitaltart: 55-76-2535Osciuruku for malignant neoplasm of cervixMemorial Health System: 14-05-3562Wgfms diphtheria, tetanus and acellular pertussis (DTaP) vaccinationTDAP (ADULT)[facility] Hospitalart: 49-38-8860Fzdukty vaccinationTETANUSAHolzer Hospital: 11-40-7822JAG screening HIV SCREENING DISCUSSIONMemorial Health System: 58-04-9064Oltfhwtkjv ScreenDepression ScreenBON Tuscarawas Hospitalart: 68-53-0055Dzorarbhe for malignant neoplasm of colonTHE [facility] Healthcare End: 78-42-5826Tnsctebxmwzuu procedure, preparation of smear, genital sourcePAP SMEAR Lab Routine Screening for cervical cancer 1 Occurrences starting 11/23/2019 until 11/23/2019[facility], KYComment on above:1 Occurrences starting 11/23/2019 until 11/23/2019IGP, RFX APTIMA HPV ASCUIGP, RFX APTIMA HPV ASCU Lab Routine Screening for malignant neoplasm of cervix Ordered: 09/16/2024 [facility] Healthcare Work Phone: comment on above:Ordered: 09/16/2024 Immunizations Immunization DateImmunizationNotesCare SwopdhgpNemydbji67-90-8822iuhslfk toxoid, reduced diphtheria toxoid, and acellular pertussis vaccine, adsorbedCorey Rajan DO Work Phone: [facility] HospitalZqabkcwxam68-89-3497iwrvzizfp, injectable, madin isabelle canine kidney, preservative freeCorey Rajan DO Work Phone: [facility] HospitalBzkcvcyfaj38-14-0974fuydzvqoy virus vaccine, unspecified formulationCorey Rajan DO Work Phone: [facility] HospitalWcqwgoibqc95-89-2864fmzjho vaccine, liveGerri Rine DIESEL MACHINIST Work Phone: [facility] HospitalYilusbjkrc65-72-2521geevgc vaccine, liveGerri Rine DIESEL MACHINIST Work Phone: [address] [place], [place] [address]Koxhfsdnmz74-80-0089avxjhpqdw B vaccine, adult dosageGerri Rine DIESEL MACHINIST Work Phone: [phone] [place], [place] [address]Teaqkccvng46-71-7881ffrdodtdh B vaccine, adult dosageGerri Rine DIESEL MACHINIST Work Phone: [phone] [place], [place] [address]Kffiksfkew46-05-9842dqtbgwqjz B vaccine, adult dosageGerri Rine DIESEL MACHINIST Work Phone: [phone] [place], [place] [address]Rgvvcocnig08-26-3081ejboyfbxu, injectable, quadrivalent, contains preservativeGerri Rine DIESEL MACHINIST Work Phone: [phone] [place], [place] [address]Izkyofqsbj50-69-3215wvjiewtvk virus vaccine, unspecified formulationGerri Rine DIESEL MACHINIST Work Phone: [phone] [place], [place] [address]Moqwfhsqwz62-02-6329dtsogblgp, injectable, quadrivalent, preservative freeGerri Rine DIESEL MACHINIST Work Phone: [phone] [place], [place] [address]Jtyswzjvyj24-72-0227apphqheet, injectable, quadrivalent, contains preservativeGerri Rine DIESEL MACHINIST Work Phone: [phone] [place], [place] [address]Uqnpeffurh50-64-6083vdgzhpqlo, injectable, quadrivalent, contains preservativeGerri Rine DIESEL MACHINIST Work Phone: [phone] [place], [place] [address]Yaecpqyrcv01-14-9959gruiwzu toxoid, reduced diphtheria toxoid, and acellular pertussis vaccine, adsorbedGerri Rine DIESEL MACHINIST Work Phone: [phone] [place] [address] Payers DatePayer CategoryPayerPolicy [id number] Cross Blue ShieldBCBS Member Subscriber Plan / Payer (Effective 2022-Present) Name: RobSharon pulidoi Member ID: [id number] Relation to Subscriber: Self Name: RobSharon pulidoi Subscriber ID: [id number] PayerID: Not on file Type: Not on file Address: [address] [id number] BCBS BCBS [id number] 2022-Present [phone] [facility] [address] [place] [id number] 1.2.840.452996.1.13.239.2.7.3.425662.86933-15-9055Hefluesjfnlaizsazjc 1.2.840.142219.1.13.172.2.7.3.540416.03103-61-1682CqmvdixZRJAKNC [place] [employer] xatkxalw0301 2018-Zqpanqxyjdapdcf0923 1.2.840.929695.1.13.172.2.7.3.654[id number] 2..1.704570.3.57[id number] 2.0.1.974445.3.57[id number] 2.0.1.337050.3.579.2.[id number] 2.0.1.596717.3.579.2.99738-79-0920Pxeuflb5141512 2.0.1.214540.3.57[id number] 2.840.1.031833.3.579.2.35707-45-2778Fhummqe2235196 2.0.1.359168.3.579.[id number] 2.840.1.441080.3.579.2.[id number] 2.840.1.195681.3.579.[id number] 2.840.1.675745.3.579.[id number] 2.840.1.814557.3.579.[id number] 2.840.1.001981.3.579.[id number] 2.840.1.768735.3.57[id number] 2.0.1.132994.3.579.2.[id number] 2.0.1.195502.3.579.2.808261-76-3155Qznwpab62557370577-21-3683Nnljyhm [id number] 2.0.1.825384.3.579.2.531 Social History DateTypeDetailFacilityTobacco smoking status NHISUnknown if ever smokedWVUMEDICINE HARR[facility]ITALStart: 20-22-6510Dse Assigned At BirthNot on [facility]Start: 05-[facility]2015 End: 20-26-1445Zgfkakz smoking status NHISFormer smokerBON [facility]OURS [facility] History of tobacco useCigarette [facility]: [facility]2019 End: 53-03-5356Jlpycbyxsw smoked current (pack per day) - ReportedNOMT HealthcareStart: 11-23-2019 End: 61-56-7216Gsrgqwc intakeCurrent drinker of alcohol (finding)[place], [place]Start: 26-70-1705Qclqyjg CommentsocialMercy Health- [place], [place]History of tobacco useCurrent smokerRENETTA [email or web address] Work Phone: start: 05-06-2015 End: 56-56-6192Hgtuhfh use and exposureSmokeless tobacco non-userRENETTA [email or web address] Work Phone: start: 32-38-1383Dmz [facility]tart: 93-51-5770Zcainxd smoking status NHISNever smoked tobaccoTHE [facility]THOPEDIC SPECIALTY [facility] HealthcareStart: 04-14-2023 End: 46-57-0069Yrxvkmj Use Disorder Identification Test - Consumption [AUDIT-C] [facility] HealthcareHow often to you have a drink containing alcohol?NeverNOMS HealthcareHow many standard drinks containing alcohol do you have on a typical day?1 or 2NOMS HealthcareHow often do you have 6 or more drinks on 1 occasion? MonthlyNOMT HealthcareStart: 06-66-1281Tflyovv CommentCaffeine intake: noneNOMT HealthcareStart: 26-30-8667Jqdqsa identityIdentifies as female gender (finding) [facility] HealthcareStart: 51-10-4563Ywlzmu orientationHeterosexual (finding)[facility]Start: 84-91-6836RahQnciyrRSZQ Healthcare Clinical Notes 05-21-2021 to 03-16-2025 Note Date & LpqvYewmIyvqxeok53-02-1659 History of Present illness Narrative* Daija Minaya, [employer] - 03/16/2025 1:10 PM EDT Reason for Appointment: Patient ID: Jana Langston is a 59 y.o. female who presents for 2nd Opinion on Uterine Prolapse Patient presents today for Acute Visit. MEDICATIONS Current Outpatient Medications Medication Instructions Cholecalciferol (Vitamin [...] hours PRN vitamin E 180 mg, Daily ALLERGIES Allergies[1] PROBLEMS Active Ambulatory Problems Diagnosis Date Noted Degenerative disc disease, thoracic 04/14/2023 Disc disorder of lumbar region 04/14/2023 Herniation of intervertebral disc between L5 and S1 04/14/2023 Environmental and seasonal allergies 04/14/2023 Female cystocele 04/14/2023 Uterine prolapse 04/14/2023 Hepatic cyst 04/14/2023 Myofascial pain 04/14/2023 Unspecified inflammatory spondylopathy, lumbosacral region 04/14/2023 Vitamin D deficiency 04/14/2023 History of deep venous thrombosis (DVT) of distal vein of right lower extremity 05/19/2024 Resolved Ambulatory Problems Diagnosis Date Noted Cyst of left breast 04/14/2023 Dyslipidemia 04/14/2023 Elevated cholesterol 04/14/2023 Encounter for screening for COVID-19 04/14/2023 Seasonal allergic reaction 04/14/2023 Lumbago with sciatica, left side 04/14/2023 Lumbago with sciatica, right side 04/14/2023 Sinusitis 04/14/2023 Stress reaction 04/14/2023 Vaginal discomfort 04/14/2023 Acute pyelonephritis 02/14/2016 Headache 02/15/2016 Left leg DVT (HCC) 09/30/2014 Past Medical History: Diagnosis Date Back problem History of blood clots OA (osteoarthritis) HISTORY PAST MEDICAL HISTORY SOCIAL HISTORY Medical History[2] Social History Tobacco Use Smoking status: Never Smokeless tobacco: Never Vaping Use Vaping status: Never Used Substance Use Topics Alcohol use: Yes Comment: Caffeine intake: none Drug use: Never FAMILY HISTORY Family History[3] SURGICAL HISTORY Surgical History[4] REVIEW OF SYSTEMS Review of Systems: Review of Systems Constitutional: Negative. HENT: Negative. Eyes: Negative. Respiratory: Negative. Cardiovascular: Negative. Gastrointestinal: Negative. Genitourinary: Negative. Musculoskeletal: Negative. Skin: Negative. Neurological: Negative. All other systems reviewed and are negative. Hematological: Negative. Endocrine: Negative. Allergic/Immunologic: Negative. OBJECTIVE Objective: Physical Exam Constitutional: Appearance: Normal appearance. She is well-developed. Genitourinary: Vulva normal. Cardiovascular: Rate and Rhythm: Normal rate and regular rhythm. Pulmonary: Effort: Pulmonary effort is normal. Breath sounds: Normal breath sounds. Abdominal: General: Bowel sounds are normal. There is no distension. Palpations: Abdomen is soft. Tenderness: There is no abdominal tenderness. There is no guarding or rebound. Musculoskeletal: General: No swelling. Normal range of motion. Right lower leg: No edema. Left lower leg: No edema. Neurological: Mental Status: She is alert and oriented to person, place, and time. Skin: General: Skin is warm and dry. Psychiatric: Mood and Affect: Mood normal. Behavior: Behavior normal. Vitals and nursing note reviewed. Exam conducted with a funeral director and embalmer present. Vitals: Estimated body mass index is 28.91 kg/m as calculated from the following: Height as of 09/28/24: 5' 1 . Weight as of 09/28/24: 153 lb. BP: No LMP recorded. Patient is postmenopausal. ASSESSMENT & PLAN ICD-10-CM 1. Uterine prolapse N81.4 2. Female cystocele N81.10 Pt presents for second opinion on uterine and bladder prolapse. Pelvic exam performed, uterine and bladder prolapse noted. Pt has addition al testing with Dr Merritt tomorrow morning. Pt voiced understanding. Documented by Daija Minaya LPN on behalf of: Russ Tolentino DO [1] Allergies Allergen Reactions Cefdinir GI intolerance Haloperidol Unknown Penicillin G Other Reaction(s): uncertain remote, told by mother [2] Past Medical History: Diagnosis Date Back problem Cyst of left breast 04/14/2023 History of blood clots OA (osteoarthritis) [3] Family History Problem Relation Name Age of Onset Heart disease Mother Hyperlipidemia Mother Migraines Mother Allergies Mother Lung cancer Mother Colon cancer Father Peripheral vascular disease Father Heart disease Father Stroke Maternal Grandmother No Known Problems Maternal Grandfather Diabetes Paternal Grandmother Leukemia Paternal Grandfather [4] Past Surgical History: Procedure Laterality Date ADENOIDECTOMY CERVICAL BIOPSY W/ LOOP ELECTRODE EXCISION 05/[address] Meade COLONOSCOPY 07/2015 CYST REMOVAL Right wrist OTHER SURGICAL HISTORY 2019 IUD removal TONSILLECTOMY VARICOSE VEIN SURGERY bilateral lower extremities documented in this encounterReynolds County General Memorial HospitalKeebelzxlt49-33-3632 History of Present illness Narrative* India Smith, DIESEL MACHINIST - 09/28/2024 8:30 AM EDT Images from the original note were not included. Jana Langston is a 59 y.o. female presents [...] of prednisone treatment is reported. No associated fatigueis experienced with meclizine. Congestion and pressure in [...] W/ LOOP ELECTRODE EXCISION 05/[address] Meade COLONOSCOPY 07/2015 CYST REMOVAL Right wrist OTHER [...] mouth 3 (three) times a day as neededfor dizziness - loratadine (Claritin) 10 MG tablet; Take 1 tablet (10 mg) by mouth Daily - Ambulatory referral to Physical Therapy; Future Encounter for screening mammogram for breast cancer Comments: pt to schedule mammo Orders: - Bilateral screening mammogram with tomosynthesis Follow up for as needed, may 2025 . documented in this encounterReynolds County General Memorial [id number] Instructions* Patient Instructions* India Smith NP - 09/28/2024 8:30 AM [...] Call if no better [place] [id number] Telephone encounter Note* Telephone Encounter - India Smith NP - 09/22/2024 7:10 AM EDT Sent pred / mecliine per c/o vertigo see emessage [place] [id number] Miscellaneous Notes* Telephone Encounter - India Smith NP - 09/22/2024 7:10 AM EDT Sent pred / mecliine per c/o vertigo see emessage documented in [place]Mon[place] [id number] History of Present illness Narrative* Reyna Stuart DO - 09/16/2024 1:30 PM EDT Images from the original note were not included. Reyna Stuart D.O. Obstetrics and Gynecology Patient: Jana Langston : 1965 (59 y.o.) Yearly Wellness Exam Date: 09/16/2024 Reason for Visit - Chief Complaint Patient presents with Gynecologic Exam Pt up to date with mammogram. Pt states has Pessary in today. Denies bowel/bladder/breast concerns.Denies vaginal bleeding/spotting. Visit Vitals BP 124/76 Wt [...] date 08/27/23 wnl Last mammogram date 01/26/24 [facility] Review of Systems - General: Chills denies. [...] Review Audit Reviewed by Zenia Kimball MA ([employer]acle Business Analyst) on 09/16/24 at 1331 Medication Order Taking? Sig Documenting Provider Last Dose Status Cholecalciferol (Vitamin D) 125 MCG (5000 UT) capsule [id number] Take 2 capsules by mouth Daily Levi Smith NP Active fluticasone (Flonase) 50 MCG/ACT nasal spray [id number] Administer 1-2 sprays into each nostril DailyShake gently. Before first use, prime pump. After use, clean tip and replace cap. Malcolm Melton NP Active Patient not taking: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
[2025-05-03 13:28] LABS: Hematocrit 41.4 % (36.0-48.0); Hemoglobin 13.7 g/dL (12.0-16.0); Immature Granulocytes Abs Auto 0.04 10^3/uL (0.00-0.03); Immature Granulocytes Pct Auto 0.6 % (0.0-0.5); Lymphocytes Absolute Auto 2.5 10^3/uL (1.2-3.8); Mean Corpuscular HGB Conc 33.1 g/dL (29.9-35.2); Mean Corpuscular Hemoglobin 28.7 pg (26.7-34.0); Mean Corpuscular Volume 86.8 fL (81.0-99.0); Platelet Count 285 10^3/uL (150-450); Red Blood Count 4.77 10^6/uL (4.20-5.40); White Blood Count 6.6 10^3/uL (4.0-11.0)
[2025-05-03 14:27] LABS: Albumin Level 3.8 g/dL (3.4-5.0); Anion Gap 10.3; Blood Urea Nitrogen 20.0 mg/dL (7.0-18.0); Calcium 9.1 mg/dL (8.5-10.1); Carbon Dioxide 29.8 mmol/L (21.0-32.0); Chloride 107 mmol/L (98-107); Estimated GFR (African America >60 (>=60 mL/min/1.73m^2); Estimated GFR (Non-African Ame >60 (>=60 mL/min/1.73m^2); Glucose 87 mg/dL (74-106); Potassium 4.1 mmol/L (3.5-5.1); Sodium 143 mmol/L (136-145)
== END 2025-05-03 13:02 | disposition home or self-care (01) ==
LOC: LAB 13:03
PROVIDERS: PCP Nurse Practitioner
DX: R39.15 Urgency of urination (principal); R14.0 Abdominal distension (gaseous); K59.00 Constipation, unspecified
CPT/HCPCS: 36415; 80048; 82042; 85025; 93005